=== PATIENT | male | born 1960 | race Caucasian/White ===

== ENCOUNTER 2016-08-17 09:25 | Day surgery (SDC) | payer MEDICAID ==
[2016-08-17] MEDS ORDERED: Lactated Ringers 1,000 ML IV SCH (10:00)
[2016-08-17] MEDS ORDERED: fentaNYL 100 MCG/2 ML SDV ONE (11:09)
[2016-08-17] MEDS ORDERED: Bupivacaine 0.5% 50 ML MDV ONE (11:09)
[2016-08-17] MEDS ORDERED: Midazolam 1 MG/ML 2 ML SDV ONE (11:09)
[2016-08-17] MEDS ORDERED: Propofol 200 MG/20 ML SDV ONE (11:09)
[2016-08-17] MEDS ORDERED: Lidocaine 0.5% 50 ML SDV ONE (12:02)
[2016-08-17 13:49] VITALS: BP 142/78
--- NOTE | 2016-08-17 14:33 | OR ---
DATE OF PROCEDURE: 08/17/2016 PREOPERATIVE DIAGNOSIS: Left nondominant volar wrist ganglion cyst. POSTOPERATIVE DIAGNOSIS: Left nondominant volar wrist ganglion cyst. PROCEDURE: Left nondominant volar wrist ganglion cystectomy. ANESTHESIA: Left Rew block. INDICATION: This 56-year-old white male has a mass on the volar aspect of his left wrist which is tender and bothers him. He is here to have it excised. It is consistent with a volar ganglion cyst. It is on the radial side. He has a normal Isiah's test. I counseled him for excision of the cyst including risks and alternatives, and he gave his informed consent to proceed. DESCRIPTION OF PROCEDURE: After adequate left upper extremity Rew block anesthesia was obtained, the left upper extremity was prepped and draped in the usual sterile fashion. A marking pen was used to wily the planned incision, which was a curvilinear incision over the cyst. Time-out was held. The incision was then made. This was carried deep bluntly and sharply to the cyst. The cyst was excised, it was dissected off the radial artery and was sent to pathology. All looked well. The skin was closed with a running stitch of 5-0 Prolene with an occasional vertical mattress stitch placed to achieve good wound edge approximation. A bulky hand dressing was applied. The tourniquet was cycled down, and he was taken from the operating room in good condition, having tolerated the procedure well. Rober Garcia MD /[id number] JUAQUIN
== END 2016-08-17 14:02 | disposition home or self-care (01) ==
LOC: JP.SDS 09:25
PROVIDERS: ATTEND Surgery
DX: M67.432 Ganglion, left wrist (principal); E11.9 Type 2 diabetes mellitus without complications; F43.10 Post-traumatic stress disorder, unspecified; F41.9 Anxiety disorder, unspecified; G43.A0 Cyclical vomiting, in migraine, not intractable; K21.9 Gastro-esophageal reflux disease without esophagitis; K42.9 Umbilical hernia without obstruction or gangrene; F32.9 Major depressive disorder, single episode, unspecified; Z87.891 Personal history of nicotine dependence; Z79.84 Long term (current) use of oral hypoglycemic drugs; Z79.899 Other long term (current) drug therapy; Z88.0 Allergy status to penicillin; Z88.8 Allergy status to other drugs, medicaments and biological substances; Z91.018 Allergy to other foods
CPT/HCPCS: 25111; J2250; J2704; J3010; J7120; 88305

== ENCOUNTER 2017-02-08 00:45 | Emergency (ER) | payer MEDICAID ==
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
[2017-02-08 03:31] VITALS: BP 140/87
== END 2017-02-08 04:00 ==
LOC: JP.ED 00:45
DX: R45.851 Suicidal ideations (principal); I10 Essential (primary) hypertension; E11.9 Type 2 diabetes mellitus without complications; H54.7 Unspecified visual loss; E78.00 Pure hypercholesterolemia, unspecified; J45.909 Unspecified asthma, uncomplicated; M19.90 Unspecified osteoarthritis, unspecified site; G43.909 Migraine, unspecified, not intractable, without status migrainosus; E66.9 Obesity, unspecified; L40.9 Psoriasis, unspecified; F32.9 Major depressive disorder, single episode, unspecified; Z90.49 Acquired absence of other specified parts of digestive tract; Z91.5 Personal history of self-harm; Z88.0 Allergy status to penicillin; Z91.040 Latex allergy status; Z88.8 Allergy status to other drugs, medicaments and biological substances; Z91.018 Allergy to other foods; Z79.899 Other long term (current) drug therapy; Z68.41 Body mass index [BMI] 40.0-44.9, adult
CPT/HCPCS: 36415; 80053; 80305; 85025; 99285; G0480

== ENCOUNTER 2018-02-21 06:43 | Day surgery (SDC) | payer MEDICAID, MEDICARE ==
[2018-02-21] MEDS ORDERED: ceFAZolin 2 GM in Premix Bag 1 BAG IV ONE (07:30)
[2018-02-21] MEDS: Lactated Ringers 1,000 ML IV SCH (07:42)
[2018-02-21] MEDS: Albuterol/Ipratropium 3.0-0.5 MG/3 ML Neb Soln NEB ONE (07:42)
[2018-02-21] MEDS ORDERED: fentaNYL 250 MCG/5 ML SDV ONE ×2 (08:19→09:08)
[2018-02-21] MEDS ORDERED: Dexamethasone 4 MG/ML SDV ONE (08:19)
[2018-02-21] MEDS ORDERED: Rocuronium 50 MG/5 ML Vial ONE (08:19)
[2018-02-21] MEDS ORDERED: Ondansetron 4 MG/2 ML SDV ONE (08:19)
[2018-02-21] MEDS ORDERED: Propofol 200 MG/20 ML SDV ONE (08:19)
[2018-02-21] MEDS ORDERED: Glycopyrrolate 0.2 MG/ML 5 ML MDV ONE (08:19)
[2018-02-21] MEDS ORDERED: Neostigmine Methylsulfate 1 MG/ML 5 ML Syringe ONE (08:19)
[2018-02-21] MEDS: Clindamycin Phosphate 900 MG in Sodium Chloride 0.9% 100 ML IV ONE (08:39)
[2018-02-21] MEDS: Lidocaine 1% with EPINEPHrine 1:100,000 50 ML MDV ONE (09:14)
[2018-02-21] MEDS: Bupivacaine 0.5% 50 ML MDV ONE (09:14)
[2018-02-21 10:35] VITALS: BP 149/79
--- NOTE | 2018-02-21 13:05 | OR ---
DATE OF PROCEDURE: 02/21/2018 PREOP DIAGNOSIS: Small periumbilical incisional hernia. POSTOP DIAGNOSIS: Small periumbilical incisional hernia. PROCEDURE: Suture closure with #1 Prolene of small incisional hernia adjacent to umbilicus. ANESTHESIA: General endotracheal. SURGEON: Rober Garcia MD INDICATION: This 57-year-old white male has had multiple prior operations including multiple hernia repairs with mesh. He now has a small one adjacent to his umbilicus. He is here to have it repaired. I counseled him for repair of this probably with mesh, and he gave his informed consent to proceed. DESCRIPTION OF PROCEDURE: After adequate general endotracheal anesthesia was obtained, the patient's abdomen was prepped and draped in the usual sterile fashion. Time-out was held. An incision over the hernia defect was made. The underlying preperitoneal fat was dissected free and removed to reveal the hernia defect. This was quite small and it allowed DeBakey to pass through down into the abdomen. We elevated the fascial edges and did confirm there were no adhesions to the anterior abdominal wall at this point, and then closed the small defect with a [id number] stitch of #1 Prolene. Lidocaine 1% with epinephrine and a 50:50 mix with 0.5% Marcaine was infiltrated about the incision. The subcutaneous tissue was closed with an interrupted 3-0 Vicryl suture, 4-0 Vicryl using a subcuticular stitch was placed to approximate the skin. Dermabond was applied. The anesthesia was reversed. He was extubated and brought to recovery room in good condition. Rober Garcia MD /[id number]
== END 2018-02-21 10:45 | disposition home or self-care (01) ==
LOC: JP.SDS 06:43
PROVIDERS: ATTEND Surgery
DX: K43.2 Incisional hernia without obstruction or gangrene (principal); E11.9 Type 2 diabetes mellitus without complications; Z79.84 Long term (current) use of oral hypoglycemic drugs; J45.20 Mild intermittent asthma, uncomplicated; E66.9 Obesity, unspecified; Z68.38 Body mass index [BMI] 38.0-38.9, adult; F17.210 Nicotine dependence, cigarettes, uncomplicated; Z79.899 Other long term (current) drug therapy; Z88.0 Allergy status to penicillin; Z88.6 Allergy status to analgesic agent; Z88.8 Allergy status to other drugs, medicaments and biological substances; Z91.040 Latex allergy status; Z88.5 Allergy status to narcotic agent; Z91.018 Allergy to other foods
CPT/HCPCS: 94640; J1100; J2405; J2704; J2710; J3010; J3490; J7030; J7120; J7620-GY

== ENCOUNTER 2018-11-14 16:13 | Emergency (ER) | payer MEDICARE ==
[2018-11-14 16:30] VITALS: BP 154/104
[2018-11-14] MEDS ORDERED: Sodium Chloride 0.9% 1,000 ML IV SCH ×2 (16:30→17:30)
--- NOTE | 2018-11-14 16:31 | EDM.PDOC ---
<Robyn Pizarro - Last Filed: 11/14/18 18:29> ED HPI GENERAL MEDICAL PROBLEM - General Chief Complaint: Syncope Stated Complaint: DIZZY, WEEK, PAIN IN RIGHT ARM, SOB Time Seen by Provider: 11/14/18 16:28 Source of Information: Reports: Patient History Limitations: Reports: No Limitations - History of Present Illness INITIAL COMMENTS - FREE TEXT/NARRATIVE: pt has been dizzy all day. When he got to the clinic he was in a room and he passed out. It took several people to get him in position to be transported. He had some med changes in the last 2-3 days. His metformin was decreased and his minipress was decreased. Onset: Today Duration: Hour(s): Location: Reports: Generalized Associated Symptoms: Reports: Syncope - Related Data Allergies Allergy/AdvReac Type Severity Reaction Status Date / Time nut - unspecified Allergy Severe Anaphylactic Verified 11/14/18 16:41 Shock penicillin Allergy Severe Airway Verified 11/14/18 16:41 Tightness latex Allergy Rash Verified 11/14/18 16:41 amitriptyline AdvReac Vomiting Verified 11/14/18 16:41 ibuprofen AdvReac Bleeding Verified 11/14/18 16:41 oxycodone HCl [From Percocet] AdvReac Nausea Verified 11/14/18 16:41 tomato AdvReac Vomiting Verified 11/14/18 16:41 Home Meds: Home Meds Omeprazole 40 mg PO DAILY 12/27/14 [History] Acetaminophen [Arthritis Pain Relief] 650 mg PO ASDIRECTED 04/08/15 [History] Albuterol [Proventil HFA] 2 puff INH Q4H PRN 01/23/16 [History] Cetirizine HCl [Zyrtec] 10 mg PO DAILY 01/23/16 [History] Docusate Sodium 200 mg PO BID 01/23/16 [History] Gabapentin [Neurontin] 400 mg PO BID 01/23/16 [History] Prazosin [Minpress] 10 mg PO BEDTIME 01/23/16 [History] Venlafaxine [Effexor XR] 150 mg PO DAILY 01/23/16 [History] atorvaSTATin [Lipitor] 20 mg PO BEDTIME 01/23/16 [History] metFORMIN [Glucophage] 500 mg PO DAILY 07/09/16 [History] Gabapentin [Neurontin] 800 mg PO BEDTIME 02/08/17 [History] Albuterol [Ventolin HFA] 2 inhalation IH Q4HR PRN 02/19/18 [History] Melatonin 6 mg PO BEDTIME 02/19/18 [History] Triamcinolone Acetonide [Triamcinolone Acetonide 0.1% Crm] 1 applic .XX TID [History] Cephalexin [Keflex] 500 mg PO QID 11/14/18 [History] Meclizine [Antivert] 25 mg PO Q6H PRN #30 tab 11/14/18 [Rx] Past Medical History - Past Health History Medical/Surgical History: Denies Medical/Surgical History HEENT History: Reports: Cataract, Impaired Vision Other HEENT History: wears glasses Cardiovascular History: Reports: Blood Clots/VTE/DVT, High Cholesterol, Hypertension, SOB on Exertion, Syncope Respiratory History: Reports: Asthma, SOB Gastrointestinal History: Reports: Bowel Obstruction, Chronic Constipation, Colon Polyp, Gastritis, GERD, GI Bleed Genitourinary History: Reports: Diabetic Nephropathy Musculoskeletal History: Reports: Arthritis, Fracture, Fibromyalgia Other Musculoskeletal History: toe right carpel tunnel syndrome Neurological History: Reports: Concussion, Migraines, Neuropathy, Diabetic, Neuropathy, Peripheral, Seizure Other Neuro History: LAST SEIZURE MORE THAN 10 YEARS Psychiatric History: Reports: Anxiety, Depression, Psych Hospitalization(s), PTSD, Suicide Attempt, Suicidal Ideation Other Psychiatric History: borderline clinging disorder Endocrine/Metabolic History: Reports: Diabetes, Type II, Hyperparathyroidism, Obesity/BMI 30+ Oncologic (Cancer) History: Reports: Basal Cell Carcinoma Dermatologic History: Reports: Psoriasis, Urticaria - Infectious Disease History Infectious Disease History: Reports: Chicken Pox, Measles, Mumps - Past Surgical History HEENT Surgical History: Reports: Tonsillectomy Cardiovascular Surgical History: Reports: None Respiratory Surgical History: Reports: None GI Surgical History: Reports: Appendectomy, Cholecystectomy, Colon, Colonoscopy , EGD, Hernia, Abdominal, Hernia Repair/Other, Lysis of Adhesions, Small Bowel Male Surgical History: Reports: None Endocrine Surgical History: Reports: Parathyroidectomy Neurological Surgical History: Reports: None Musculoskeletal Surgical History: Reports: Arthroscopic Knee Oncologic Surgical History: Reports: Other (See Below) Other Oncologic Surgeries/Procedures: BIOPSY Dermatological Surgical History: Reports: Skin Biopsy Social & Family History - Family History Family Medical History: Noncontributory HEENT: Reports: Sinusitis Cardiac: Reports: Aneurysm, Blood Clots/VTE/DVT, HI, SOB on Exertion Respiratory: Reports: COPD OBGYN: Reports: Other (See Below) Other OBGYN Family History: hysterectomies Musculoskeletal: Reports: Arthritis, Back pain, Chronic Neurological: Reports: CVA, MS Psychiatric: Reports: Psych Hospitalization(s), Psychosis Endocrine/Metabolic: Reports: Diabetes, Type I, Hypothyroidism Dermatologic: Reports: Psoriasis Oncologic: Reports: Breast, Other (See Below) Other Oncologic Family History: stomach - Tobacco Use Smoking Status *Q: Current Every Day Smoker Years of Tobacco use: 40 Packs/Tins Daily: 1.5 - Caffeine Use Caffeine Use: Reports: Coffee, Soda - Recreational Drug Use Recreational Drug Use: Yes Recreational Drug Type: Reports: Marijuana/Hashish Recreational Drug Use Frequency: Socially ED ROS GENERAL - Review of Systems Review Of Systems: See Below Constitutional: Reports: Weakness HEENT: Reports: No Symptoms Respiratory: Reports: No Symptoms Cardiovascular: Reports: Other (pt is having some rt shoulder pain. ) Endocrine: Reports: No Symptoms GI/Abdominal: Reports: No Symptoms : Reports: No Symptoms Musculoskeletal: Reports: No Symptoms Skin: Reports: No Symptoms Neurological: Reports: Dizziness, Difficulty Walking, Weakness Psychiatric: Reports: Anxiety ED EXAM, GENERAL - Physical Exam Exam: See Below Free Text/Narrative:: pt arrived transfered from the clinic stating that he feels like his whole room is spinning He is having difficulty opening his eyes. He does appear to have some nystagmuas. Exam Limited By: No Limitations General Appearance: Alert, Anxious, Moderate Distress, Other (pupils equal and reactive. probasble nystagmus. ) Ears: Normal TMs Nose: Normal Inspection Throat/Mouth: Normal Inspection Head: Atraumatic Neck: Normal Inspection Respiratory/Chest: No Respiratory Distress Cardiovascular: Regular Rate, Rhythm GI/Abdominal: Soft, Non-Tender (Male) Exam: Deferred Rectal (Males) Exam: Deferred Back Exam: Normal Inspection Extremities: Normal Inspection Neurological: Alert, Oriented, Other (pt seemes to not respond normally at times. ) Psychiatric: Anxious Course - Vital Signs Last Recorded V/S: Last Vital Signs Temp 36.1 C 11/14/18 16:20 Pulse 66 11/14/18 16:20 Resp 11 L 11/14/18 16:20 BP 154/104 H 11/14/18 16:20 Pulse Ox 98 11/14/18 16:20 Orthostatic Blood Pressure [ 131/86 Standing] Orthostatic Blood Pressure [ 129/76 Supine] Orthostatic Blood Pressure [ 139/89 Sitting] - Orders/Labs/Meds Orders: Active Orders 24 hr Category Date Time Status EKG Documentation Completion [RC] ASDIRECTED Care 11/14/18 16:26 Active Orthostatic Vital Signs [RC] ASDIRECTED Care 11/14/18 16:33 Active Shoulder Comp Rt [CR] Stat Exams 11/14/18 18:14 Taken Sodium Chloride 0.9% [Normal Saline] 1,000 ml Med 11/14/18 16:30 Active IV ASDIRECTED Sodium Chloride 0.9% [Normal Saline] 1,000 ml Med 11/14/18 17:30 Active IV ASDIRECTED EKG 12 Lead [EK] Routine Ther 11/14/18 16:26 Ordered Medication Orders Sodium Chloride (Normal Saline) 1,000 mls @ 999 mls/hr IV ASDIRECTED ROBYN Last Admin: 11/14/18 17:01 Dose: 999 mls/hr Sodium Chloride (Normal Saline) 1,000 mls @ 999 mls/hr IV ASDIRECTED ROBYN Last Admin: 11/14/18 18:38 Dose: 999 mls/hr Labs: Laboratory Tests 11/14/18 11/14/18 11/14/18 Range/Units 16:20 16:20 16:52 WBC 8.5 (4.5-11.0) K/uL RBC 5.49 (4.30-5.90) M/uL Hgb 17.6 H (12.0-15.0) g/dL Hct 50.8 (40.0-54.0) % MCV 93 (80-98) fL MCH 32 H (27-31) pg MCHC 35 (32-36) % Plt Count 223 (150-400) K/uL Neut % (Auto) 64 (36-66) % Lymph % (Auto) 24 (24-44) % [place] % (Auto) 9 H (2-6) % Eos % (Auto) 2 (2-4) % Baso % (Auto) 1 (0-1) % Sodium 140 (140-148) mmol/L Potassium 4.8 (3.6-5.2) mmol/L Chloride 105 (100-108) mmol/L Carbon Dioxide 26 (21-32) mmol/L Anion Gap 9.3 (5.0-14.0) mmol/L BUN 13 (7-18) mg/dL Creatinine 1.0 (0.8-1.3) mg/dL Est Cr Clr Drug Dosing 97.41 mL/min Estimated GFR (MDRD) > 60 (>60) Glucose 86 (74-106) mg/dL Calcium 9.9 (8.5-10.1) mg/dL Total Bilirubin 0.5 D (0.2-1.0) mg/dL AST 28 (15-37) U/L ALT 61 (12-78) U/L Alkaline Phosphatase 85 (46-116) U/L Troponin I < 0.017 (0.000-0.056) ng/mL Total Protein 6.8 (6.4-8.2) g/dL Albumin 3.9 (3.4-5.0) g/dL Globulin 2.9 (2.3-3.5) g/dL Albumin/Globulin Ratio 1.3 (1.2-2.2) Urine Color Urine Appearance Urine pH (4.5-8.0) Ur Specific [place] (1.008-1.030) Urine Protein (NEGATIVE) mg/dL Urine Glucose (UA) (NEGATIVE) mg/dL Urine Ketones (NEGATIVE) mg/dL Urine Occult Blood (NEGATIVE) Urine Nitrite (NEGAITVE) Urine Bilirubin (NEGATIVE) Urine Urobilinogen (NORMAL) mg/dL Ur Leukocyte Esterase (NEGATIVE) Urine RBC (0-5) Urine WBC (0-5) Ur Epithelial Cells Amorphous Sediment Urine Bacteria Urine Mucus Urine Opiates Screen (NEGATIVE) Ur Oxycodone Screen (NEGATIVE) Urine Methadone Screen (NEGATIVE) Ur Propoxyphene Screen (NEGATIVE) Ur Barbiturates Screen (NEGATIVE) Ur Tricyclics Screen (NEGATIVE) Ur Phencyclidine Scrn (NEGATIVE) Ur Amphetamine Screen (NEGATIVE) U Methamphetamines Scrn (NEGATIVE) Urine MDMA Screen (NEGATIVE) U Benzodiazepines Scrn (NEGATIVE) U Cocaine Metab Screen (NEGATIVE) U Marijuana (THC) Screen (NEGATIVE) Ethyl Alcohol mg/dL 11/14/18 11/14/18 11/14/18 Range/Units 18:01 18:01 18:33 WBC (4.5-11.0) K/uL RBC (4.30-5.90) M/uL Hgb (12.0-15.0) g/dL Hct (40.0-54.0) % MCV (80-98) fL MCH (27-31) pg MCHC (32-36) % Plt Count (150-400) K/uL Neut % (Auto) (36-66) % Lymph % (Auto) (24-44) % [place] % (Auto) (2-6) % Eos % (Auto) (2-4) % Baso % (Auto) (0-1) % Sodium (140-148) mmol/L Potassium (3.6-5.2) mmol/L Chloride (100-108) mmol/L Carbon Dioxide (21-32) mmol/L Anion Gap (5.0-14.0) mmol/L BUN (7-18) mg/dL Creatinine (0.8-1.3) mg/dL Est Cr Clr Drug Dosing mL/min Estimated GFR (MDRD) (>60) Glucose (74-106) mg/dL Calcium (8.5-10.1) mg/dL Total Bilirubin (0.2-1.0) mg/dL AST (15-37) U/L ALT (12-78) U/L Alkaline Phosphatase (46-116) U/L Troponin I (0.000-0.056) ng/mL Total Protein (6.4-8.2) g/dL Albumin (3.4-5.0) g/dL Globulin (2.3-3.5) g/dL Albumin/Globulin Ratio (1.2-2.2) Urine Color Yellow Urine Appearance Clear Urine pH 6.0 (4.5-8.0) Ur Specific [place] 1.010 (1.008-1.030) Urine Protein Negative (NEGATIVE) mg/dL Urine Glucose (UA) Normal (NEGATIVE) mg/dL Urine Ketones Negative (NEGATIVE) mg/dL Urine Occult Blood Negative (NEGATIVE) Urine Nitrite Negative (NEGAITVE) Urine Bilirubin Negative (NEGATIVE) Urine Urobilinogen Normal (NORMAL) mg/dL Ur Leukocyte Esterase Negative (NEGATIVE) Urine RBC Not seen (0-5) Urine WBC Not seen (0-5) Ur Epithelial Cells Not seen Amorphous Sediment Rare Urine Bacteria Rare Urine Mucus Not seen Urine Opiates Screen Negative (NEGATIVE) Ur Oxycodone Screen Presumptive positive H (NEGATIVE) Urine Methadone Screen Negative (NEGATIVE) Ur Propoxyphene Screen Negative (NEGATIVE) Ur Barbiturates Screen Negative (NEGATIVE) Ur Tricyclics Screen Negative (NEGATIVE) Ur Phencyclidine Scrn Negative (NEGATIVE) Ur Amphetamine Screen Negative (NEGATIVE) U Methamphetamines Scrn Negative (NEGATIVE) Urine MDMA Screen Negative (NEGATIVE) U Benzodiazepines Scrn Negative (NEGATIVE) U Cocaine Metab Screen Negative (NEGATIVE) U Marijuana (THC) Screen Presumptive positive H (NEGATIVE) Ethyl Alcohol < 3 mg/dL Meds: Medications Generic Name Dose Route Start Last Admin Trade Name Freq PRN Reason Stop Dose Admin Sodium Chloride 1,000 mls @ 999 mls/hr 11/14/18 16:30 11/14/18 17:01 Normal Saline IV 999 mls/hr ASDIRECTED ROBYN Administration Sodium Chloride 1,000 mls @ 999 mls/hr 11/14/18 17:30 11/14/18 18:38 Normal Saline IV 999 mls/hr ASDIRECTED ROBYN Administration Discontinued Medications Generic Name Dose Route Start Last Admin Trade Name Freq PRN Reason Stop Dose Admin Meclizine HCl 25 mg 11/14/18 17:25 11/14/18 18:37 Antivert PO 11/14/18 17:26 25 mg ONETIME ONE Administration Ondansetron HCl 4 mg 11/14/18 16:43 11/14/18 17:00 Zofran IVPUSH 11/14/18 16:44 4 mg ONETIME ONE Administration - Re-Assessments/Exams Free Text/Narrative Re-Assessment/Exam: 11/14/18 17:41 pt has had normal labs except for dehydration. 11/14/18 18:29 on cat 11/14/18 18:31 pt had a cat scan of the head which did show a possible maxillary sinuitis. He did not show other abnormalities, His symptoms seem to lean towards a inner ear disturbance, He has been given antivert and zoforan. He is nmore awake at this time. Departure - Departure Disposition: Home, Self-Care 01 Clinical Impression: Vertigo, Marijuana use Shoulder pain, right Qualifiers: Chronicity: unspecified Qualified Code(s): M25.511 - Pain in right shoulder Prescriptions: Meclizine [Antivert] 25 mg PO Q6H PRN #30 tab PRN Reason: Dizziness Instructions: Vertigo, [id number] Referrals: Samuel Bueno MD [Primary Care Provider] - Forms: ED Department Discharge Additional Instructions: Use meclizine every 6-8 hrs as needed for vertigo. Take acetaminophen up to 1000 mg every 6 hrs as needed for shoulder pain. See you provider regarding either a cortisone injection or PT referral for the shoulder pain. Return as needed. <Kentrell Leavitt - Last Filed: 11/14/18 19:16> Course - Vital Signs Text/Narrative:: Feeling much better after meclizine. Departure - Departure Time of Disposition: 19:40 Condition: Fair
[2018-11-14] MEDS ORDERED: Ondansetron 4 MG/2 ML SDV IVPUSH ONE (16:43)
[2018-11-14] MEDS ORDERED: Meclizine 25 MG Tab PO ONE (17:25)
--- NOTE | 2018-11-14 17:51 | CRLCT ---
Indication: Intermittent unresponsiveness. Technique: CT of the head without contrast. Bone and soft tissue algorithms. Comparison: No prior studies available for comparison at this institution. Findings: No acute intracranial hemorrhage or extra-axial collection. No evidence of acute cortical infarction. No mass effect or midline shift. Normal cerebral volume. The ventricles are normal in size, shape and contour. There is normal christians[place] and white matter differentiation. Carotid siphon atherosclerosis. The orbital contents are normal. Small air-fluid level in the right maxillary sinus. Please correlate for acute sinus infection. Mastoid air cells are clear. No calvarial fractures. No lytic or sclerotic osseous lesions within the calvarium or skull base. Scalp and other imaged soft tissue structures are normal. Incidental prominent arachnoid granulation in the right occipital bone. Impression: 1. No acute intracranial abnormality. 2. Small air-fluid level in the right maxillary sinus. Please correlate for acute sinus infection. Please note that all CT scans at this facility use dose modulation, iterative reconstruction, and/or weight-based dosing when appropriate to reduce radiation dose to as low as reasonably achievable. Dictated by Samuel Ayala MD @ Nov 14 2018 5:47PM Signed by Dr. Samuel Ayala @ Nov 14 2018 5:50PM
--- NOTE | 2018-11-14 19:24 | CRLCR ---
Indication: Right shoulder pain Technique: Right shoulder 4 views. Comparison: None Findings: Bones: Alignment is normal. No fractures or bone lesions. Joint spaces: Unremarkable. Soft tissues: Unremarkable. Impression: Unremarkable right shoulder series. Dictated by Mychal Robertson MD @ Nov 14 2018 7:18PM Signed by Dr. Mychal Robertson @ Nov 14 2018 7:24PM
== END 2018-11-14 19:37 | disposition home or self-care (01) ==
LOC: JP.ED 16:13
DX: R42 Dizziness and giddiness (principal); M25.511 Pain in right shoulder; F12.90 Cannabis use, unspecified, uncomplicated; I10 Essential (primary) hypertension; E66.9 Obesity, unspecified; E11.21 Type 2 diabetes mellitus with diabetic nephropathy; M19.90 Unspecified osteoarthritis, unspecified site; E11.40 Type 2 diabetes mellitus with diabetic neuropathy, unspecified; K21.9 Gastro-esophageal reflux disease without esophagitis; F32.9 Major depressive disorder, single episode, unspecified; F41.9 Anxiety disorder, unspecified; Z88.0 Allergy status to penicillin; Z79.84 Long term (current) use of oral hypoglycemic drugs; Z91.040 Latex allergy status; Z88.6 Allergy status to analgesic agent; Z91.018 Allergy to other foods; Z79.899 Other long term (current) drug therapy; Z98.890 Other specified postprocedural states; Z90.49 Acquired absence of other specified parts of digestive tract; F17.210 Nicotine dependence, cigarettes, uncomplicated
CPT/HCPCS: 36415; 70450; 73030; 80053; 80305; 81001; 82962; 84484; 85025; 93005; 96361; 96374; 99284; A9270; G0480; J2405; J7030; 93010

== ENCOUNTER 2018-12-01 12:57 | Emergency (ER) | payer MEDICARE, MEDICAID ==
[2018-12-01] MEDS ORDERED: Ondansetron 4 MG/2 ML SDV IVPUSH ONE (13:27)
[2018-12-01] MEDS ORDERED: Sodium Chloride 0.9% 10 ML Syringe FLUSH PRN (13:27)
[2018-12-01] MEDS ORDERED: Sodium Chloride 0.9% 1,000 ML IV SCH (13:30)
--- NOTE | 2018-12-01 13:32 | EDM.PDOC ---
ED HPI GENERAL MEDICAL PROBLEM - General Chief Complaint: Neurological Problem Stated Complaint: BLOOD CLOT WITH MEMORY LOSS, DIZZY, HEADACHES Time Seen by Provider: 12/01/18 13:17 Source of Information: Reports: Patient, Family, Old Records, RN Notes Reviewed History Limitations: Reports: No Limitations - History of Present Illness INITIAL COMMENTS - FREE TEXT/NARRATIVE: 58-year-old gentleman presents emergency department today with complaint of increasing headache, he does have a known history of a venous sinus thrombus recently diagnosed on 18 November. With that he has had seizures was admitted the hospital started on anticoagulants as well as seizure medications and Lovenox Coumadin and Keppra. He states over the last 24 hours he's had an increase in pain with this headache also noticed difficulties with memory. He states his seizure activity has improved however he still having one seizure per day last less than a minute but there is a period of post ictal following these usually happens midmorning. Also complains of nausea denies any shortness of breath chest pain no or GI symptomology no focal neurologic deficit Headache Pain Score (Numeric/FACES): 10 - Related Data Allergies Allergy/AdvReac Type Severity Reaction Status Date / Time nut - unspecified Allergy Severe Anaphylactic Verified 12/01/18 13:17 Shock penicillin Allergy Severe Airway Verified 12/01/18 13:17 Tightness latex Allergy Rash Verified 12/01/18 13:17 amitriptyline AdvReac Vomiting Verified 12/01/18 13:17 ibuprofen AdvReac Bleeding Verified 12/01/18 13:17 oxycodone HCl [From Percocet] AdvReac Nausea Verified 12/01/18 13:17 tomato AdvReac Vomiting Verified 12/01/18 13:17 Home Meds: Home Meds Omeprazole 40 mg PO DAILY 12/27/14 [History] Acetaminophen [Arthritis Pain Relief] 650 mg PO ASDIRECTED 04/08/15 [History] Albuterol [Proventil HFA] 2 puff INH Q4H PRN 01/23/16 [History] Cetirizine HCl [Zyrtec] 10 mg PO DAILY 01/23/16 [History] Docusate Sodium 200 mg PO BID 01/23/16 [History] Gabapentin [Neurontin] 400 mg PO BID 01/23/16 [History] Prazosin [Minpress] 10 mg PO BEDTIME 01/23/16 [History] atorvaSTATin [Lipitor] 20 mg PO BEDTIME 01/23/16 [History] metFORMIN [Glucophage] 500 mg PO DAILY 07/09/16 [History] Gabapentin [Neurontin] 800 mg PO BEDTIME 02/08/17 [History] Albuterol [Ventolin HFA] 2 inhalation IH Q4HR PRN 02/19/18 [History] Melatonin 6 mg PO BEDTIME 02/19/18 [History] Triamcinolone Acetonide [Triamcinolone Acetonide 0.1% Crm] 1 applic .XX TID [History] Meclizine [Antivert] 25 mg PO Q6H PRN #30 tab 11/14/18 [Rx] Enoxaparin [Lovenox] 141 mg SQ BID 12/01/18 [History] Warfarin [Coumadin] 7.5 mg PO DAILY 12/01/18 [History] Past Medical History HEENT History: Reports: Cataract, Impaired Vision Other HEENT History: wears glasses Cardiovascular History: Reports: Blood Clots/VTE/DVT (Dural venous sinus thrombosis), High Cholesterol, Hypertension, SOB on Exertion, Syncope Respiratory History: Reports: Asthma, SOB Gastrointestinal History: Reports: Bowel Obstruction, Chronic Constipation, Colon Polyp, Gastritis, GERD, GI Bleed Genitourinary History: Reports: Diabetic Nephropathy Musculoskeletal History: Reports: Arthritis, Fracture, Fibromyalgia Other Musculoskeletal History: toe right carpel tunnel syndrome Neurological History: Reports: Concussion, Migraines, Neuropathy, Diabetic, Neuropathy, Peripheral, Seizure, Other (See Below) Other Neuro History: blood clot in brain r side small seizures recently Psychiatric History: Reports: Anxiety, Depression, Psych Hospitalization(s), PTSD, Suicide Attempt, Suicidal Ideation Other Psychiatric History: borderline clinging disorder Endocrine/Metabolic History: Reports: Diabetes, Type II, Hyperparathyroidism, Obesity/BMI 30+ Oncologic (Cancer) History: Reports: Basal Cell Carcinoma Dermatologic History: Reports: Psoriasis, Urticaria - Infectious Disease History Infectious Disease History: Reports: Chicken Pox - Past Surgical History HEENT Surgical History: Reports: Tonsillectomy Cardiovascular Surgical History: Reports: None Respiratory Surgical History: Reports: None GI Surgical History: Reports: Appendectomy, Cholecystectomy, Colon, Colonoscopy , EGD, Hernia, Abdominal, Hernia Repair/Other, Lysis of Adhesions, Small Bowel Male Surgical History: Reports: None Endocrine Surgical History: Reports: Parathyroidectomy Neurological Surgical History: Reports: None Musculoskeletal Surgical History: Reports: Arthroscopic Knee Oncologic Surgical History: Reports: Other (See Below) Other Oncologic Surgeries/Procedures: BIOPSY Dermatological Surgical History: Reports: Skin Biopsy Social & Family History - Family History Family Medical History: Noncontributory HEENT: Reports: Sinusitis Cardiac: Reports: Aneurysm, Blood Clots/VTE/DVT, IA, SOB on Exertion Respiratory: Reports: COPD OBGYN: Reports: Other (See Below) Other OBGYN Family History: hysterectomies Musculoskeletal: Reports: Arthritis, Back pain, Chronic Neurological: Reports: CVA, MS Psychiatric: Reports: Psych Hospitalization(s), Psychosis Endocrine/Metabolic: Reports: Diabetes, Type I, Hypothyroidism Dermatologic: Reports: Psoriasis Oncologic: Reports: Breast, Other (See Below) Other Oncologic Family History: stomach - Caffeine Use Caffeine Use: Reports: Coffee, Soda ED ROS GENERAL - Review of Systems Review Of Systems: See Below Constitutional: Reports: No Symptoms HEENT: Reports: No Symptoms Respiratory: Reports: No Symptoms Cardiovascular: Reports: No Symptoms GI/Abdominal: Reports: Nausea : Reports: No Symptoms Musculoskeletal: Reports: No Symptoms Neurological: Reports: Headache, Seizure - Physical Exam Exam: See Below Text/Narrative:: General: Male, ill-appearing but not in distress, alert and oriented x3 HEENT: head is atraumatic normocephalic, eyes pupils equal round reactive to light, sclera clear no conjunctivitis appreciated, extraocular my movements are intact funduscopic exam reveals sharp disc margins no papilledema. Ears tympanic membranes clear and salguero landmarks and light reflex are present bilaterally canals are clear. Nose no septal deviation, nares are clear, no blood present. Mouth mucosa is moist and pink no erythema or exudate noted in soft palate, tongue is midline uvula is midline, dentition is intact. Neck: Supple no thyromegaly no tracheal deviation. Nodes: Cervical nodes subclavicular nodes nontender no palpable lymphadenopathy noted. Lungs: clear to auscultation bilaterally with symmetrical respirations, no adventitious noise appreciated. CV: Regular rate and rhythm S1 and S2 appreciated no murmurs rubs or gallops noted. Abdomen: Soft, obese, nontender, no palpable masses or organomegaly appreciated , no distention no guarding bowel sounds are present, Neuro: GCS 15 Skin: Warm and dry, intact Extremities: No lower extremity edema appreciated, pedal pulse is +2. Course - Vital Signs Last Recorded V/S: Last Vital Signs Temp 94.4 F L 12/01/18 13:46 Pulse 64 12/01/18 13:46 Resp 24 H 12/01/18 13:46 BP 151/88 H 12/01/18 13:46 Pulse Ox 94 L 12/01/18 13:46 - Orders/Labs/Meds Orders: Active Orders 24 hr Category Date Time Status Peripheral IV Care [RC] . DIRECTED Care 12/01/18 13:27 Active Sodium Chloride 0.9% [Normal Saline] 1,000 ml Med 12/01/18 13:30 Active IV ASDIRECTED Sodium Chloride 0.9% [Saline Flush] Med 12/01/18 13:27 Active 10 ml FLUSH ASDIRECTED PRN Peripheral IV Insertion Adult [OM.PC] Urgent Oth 12/01/18 13:27 Ordered Medication Orders Sodium Chloride (Normal Saline) 1,000 mls @ 500 mls/hr IV ASDIRECTED ROBYN Last Admin: 12/01/18 13:56 Dose: 500 mls/hr Sodium Chloride (Saline Flush) 10 ml FLUSH ASDIRECTED PRN PRN Reason: Keep Vein Open Last Admin: 12/01/18 13:44 Dose: 10 ml Labs: Laboratory Tests 12/01/18 12/01/18 12/01/18 Range/Units 13:41 13:41 13:41 WBC 9.2 (4.5-11.0) K/uL RBC 5.32 (4.30-5.90) M/uL Hgb 16.9 H (12.0-15.0) g/dL Hct 48.4 (40.0-54.0) % MCV 91 (80-98) fL MCH 32 H (27-31) pg MCHC 35 (32-36) % Plt Count 152 (150-400) K/uL Neut % (Auto) 75 H (36-66) % Lymph % (Auto) 15 L (24-44) % [place] % (Auto) 8 H (2-6) % Eos % (Auto) 1 L (2-4) % Baso % (Auto) 1 (0-1) % PT 11.4 (9.5-12.0) sec INR 1.06 (0.80-1.20) APTT 36.5 H (27.0-36.0) sec Sodium 138 L (140-148) mmol/L Potassium 4.1 (3.6-5.2) mmol/L Chloride 103 (100-108) mmol/L Carbon Dioxide 26 (21-32) mmol/L Anion Gap 13.1 (5.0-14.0) mmol/L BUN 11 (7-18) mg/dL Creatinine 1.0 (0.8-1.3) mg/dL Est Cr Clr Drug Dosing 97.41 mL/min Estimated GFR (MDRD) > 60 (>60) Glucose 134 H (74-106) mg/dL Lactic Acid (0.4-2.0) mmol/L Calcium 9.6 (8.5-10.1) mg/dL Total Bilirubin 0.4 (0.2-1.0) mg/dL AST 33 (15-37) U/L ALT 99 H (12-78) U/L Alkaline Phosphatase 78 (46-116) U/L Total Protein 7.1 (6.4-8.2) g/dL Albumin 3.9 (3.4-5.0) g/dL Globulin 3.2 (2.3-3.5) g/dL Albumin/Globulin Ratio 1.2 (1.2-2.2) 12/01/18 Range/Units 13:41 WBC (4.5-11.0) K/uL RBC (4.30-5.90) M/uL Hgb (12.0-15.0) g/dL Hct (40.0-54.0) % MCV (80-98) fL MCH (27-31) pg MCHC (32-36) % Plt Count (150-400) K/uL Neut % (Auto) (36-66) % Lymph % (Auto) (24-44) % [place] % (Auto) (2-6) % Eos % (Auto) (2-4) % Baso % (Auto) (0-1) % PT (9.5-12.0) sec INR (0.80-1.20) APTT (27.0-36.0) sec Sodium (140-148) mmol/L Potassium (3.6-5.2) mmol/L Chloride (100-108) mmol/L Carbon Dioxide (21-32) mmol/L Anion Gap (5.0-14.0) mmol/L BUN (7-18) mg/dL Creatinine (0.8-1.3) mg/dL Est Cr Clr Drug Dosing mL/min Estimated GFR (MDRD) (>60) Glucose (74-106) mg/dL Lactic Acid 1.4 (0.4-2.0) mmol/L Calcium (8.5-10.1) mg/dL Total Bilirubin (0.2-1.0) mg/dL AST (15-37) U/L ALT (12-78) U/L Alkaline Phosphatase (46-116) U/L Total Protein (6.4-8.2) g/dL Albumin (3.4-5.0) g/dL Globulin (2.3-3.5) g/dL Albumin/Globulin Ratio (1.2-2.2) Meds: Medications Generic Name Dose Route Start Last Admin Trade Name Freq PRN Reason Stop Dose Admin Sodium Chloride 1,000 mls @ 500 mls/hr 12/01/18 13:30 12/01/18 13:56 Normal Saline IV 500 mls/hr ASDIRECTED ROBYN Administration Sodium Chloride 10 ml 12/01/18 13:27 12/01/18 13:44 Saline Flush FLUSH 10 ml ASDIRECTED PRN Administration Keep Vein Open Discontinued Medications Generic Name Dose Route Start Last Admin Trade Name Freq PRN Reason Stop Dose Admin Fentanyl 50 mcg 12/01/18 14:18 12/01/18 14:33 Sublimaze IVPUSH 12/01/18 14:19 50 mcg ONETIME ONE Administration Ondansetron HCl 4 mg 12/01/18 13:27 12/01/18 13:58 Zofran IVPUSH 12/01/18 13:28 4 mg ONETIME ONE Administration Departure - Departure Time of Disposition: 14:51 Disposition: DC/Tfer to Acute Hospital 02 Condition: Fair Clinical Impression: Cerebral venous sinus thrombosis Headache Qualifiers: Headache type: other vascular headache Qualified Code(s): G44.1 - Vascular headache, not elsewhere classified - Discharge Information Referrals: Samuel Bueno MD [Primary Care Provider] - Forms: ED Department Discharge - My Orders Last 24 Hours: My Active Orders 12/01/18 13:27 Peripheral IV Care [RC] . DIRECTED Sodium Chloride 0.9% [Saline Flush] 10 ml FLUSH ASDIRECTED PRN Peripheral IV Insertion Adult [OM.PC] Urgent 12/01/18 13:30 Sodium Chloride 0.9% [Normal Saline] 1,000 ml IV ASDIRECTED - Assessment/Plan Last 24 Hours: My Active Orders 12/01/18 13:27 Peripheral IV Care [RC] . DIRECTED Sodium Chloride 0.9% [Saline Flush] 10 ml FLUSH ASDIRECTED PRN Peripheral IV Insertion Adult [OM.PC] Urgent 12/01/18 13:30 Sodium Chloride 0.9% [Normal Saline] 1,000 ml IV ASDIRECTED Plan: Assessment Acuity = acute Site and laterality = venous sinus thrombus left side on anticoagulants with increasing headache Etiology = unknown etiology Manifestations = nausea Location of injury = Home Lab values = CBC, CMP within normal limits INR subtherapeutic 1.06 CT scan shows no change from prior CT on 621] Plan Called discussed case with Dr. Sanz emergency room physician at [place] [address] she kindly accepted the patient in transport he will be transported via EMS ground This note was dictated using [employer] voice recognition software please call with any questions on syntax or grammar.
--- NOTE | 2018-12-01 14:04 | CT ---
Head wo Cont CLINICAL HISTORY: Headache , history of CVT COMPARISON: 11/14/2018 TECHNIQUE: Transverse scans were obtained from the base of the skull through the vertex without IV contrast on a multislice, multidetector CT scanner. Auto dosage reduction and iterative reconstruction techniques employed. FINDINGS: No focal abnormal parenchymal density is identified. There is no mass effect, hemorrhage, or extraaxial collection. The basal cisterns and sulci over the convexities are normal. The ventricles are normal for age. There is a cavum septum lucidum. There is some fluid seen in the visualized portion of the right maxillary sinus this is also seen in October. IMPRESSION: No hemorrhage, mass effect or extra-axial collection. No significant change from prior study Fluid in the right maxillary sinus. This may represent sinusitis
[2018-12-01] MEDS ORDERED: fentaNYL 100 MCG/2 ML SDV IVPUSH ONE (14:18)
[2018-12-01 15:28] VITALS: BP 147/85; PULSE 68
== END 2018-12-01 15:30 ==
LOC: JP.ED 12:57
DX: G08 Intracranial and intraspinal phlebitis and thrombophlebitis (principal); E78.00 Pure hypercholesterolemia, unspecified; I10 Essential (primary) hypertension; J45.909 Unspecified asthma, uncomplicated; K21.9 Gastro-esophageal reflux disease without esophagitis; E11.21 Type 2 diabetes mellitus with diabetic nephropathy; E11.42 Type 2 diabetes mellitus with diabetic polyneuropathy; F41.9 Anxiety disorder, unspecified; F32.9 Major depressive disorder, single episode, unspecified; F17.210 Nicotine dependence, cigarettes, uncomplicated; E66.9 Obesity, unspecified; Z68.36 Body mass index [BMI] 36.0-36.9, adult; Z88.0 Allergy status to penicillin; Z91.040 Latex allergy status; Z91.018 Allergy to other foods; Z88.5 Allergy status to narcotic agent; Z88.8 Allergy status to other drugs, medicaments and biological substances; Z88.6 Allergy status to analgesic agent; Z79.899 Other long term (current) drug therapy; Z79.01 Long term (current) use of anticoagulants; Z79.84 Long term (current) use of oral hypoglycemic drugs; Z86.718 Personal history of other venous thrombosis and embolism; Z85.828 Personal history of other malignant neoplasm of skin
CPT/HCPCS: 36415; 70450; 80053; 83605; 85025; 85610; 85730; 96361; 96374; 96375; 99285; J2405; J3010; J7030

== ENCOUNTER 2018-12-06 15:17 | Emergency (ER) | payer MEDICARE, MEDICAID ==
[2018-12-06 15:41] VITALS: BP 151/80; PULSE 69
--- NOTE | 2018-12-06 16:33 | EDM.PDOCBH ---
ED HPI GENERAL MEDICAL PROBLEM - General Chief Complaint: Behavioral/Psych Stated Complaint: SUICIDAL Time Seen by Provider: 12/06/18 15:29 Source of Information: Reports: Patient, Family, Old Records, RN Notes Reviewed History Limitations: Reports: No Limitations - History of Present Illness INITIAL COMMENTS - FREE TEXT/NARRATIVE: 58-year-old gentleman presents emergency department today complaint of suicidal ideation he has a long complicated medical history which does include sinus venous thrombosis complicated with seizure he is also been started on anticoagulation therapy and has had difficulty obtaining therapeutic level on Coumadin. He is a daily cannabis user he also suffers from PTSD does have recurrent thoughts of suicide without plan unfortunately after his recent events with his blood clot the recurrent thoughts of suicide have increased. Law enforcement was called today as he became very agitated with family members and concerned about his mental stability. At this time admits to use recurrent suicidal ideation with recent thoughts however he has no plan I'll firearms have been locked the house and medications are control by other family. He does have an appointment with psychiatry next week - Related Data Allergies Allergy/AdvReac Type Severity Reaction Status Date / Time nut - unspecified Allergy Severe Anaphylactic Verified 12/06/18 15:44 Shock penicillin Allergy Severe Airway Verified 12/06/18 15:44 Tightness latex Allergy Rash Verified 12/06/18 15:44 amitriptyline AdvReac Vomiting Verified 12/06/18 15:44 ibuprofen AdvReac Bleeding Verified 12/06/18 15:44 oxycodone HCl [From Percocet] AdvReac Nausea Verified 12/06/18 15:44 tomato AdvReac Vomiting Verified 12/06/18 15:44 Home Meds: Home Meds Omeprazole 40 mg PO DAILY 12/27/14 [History] Acetaminophen [Arthritis Pain Relief] 650 mg PO ASDIRECTED 04/08/15 [History] Albuterol [Proventil HFA] 2 puff INH Q4H PRN 01/23/16 [History] Cetirizine HCl [Zyrtec] 10 mg PO DAILY 01/23/16 [History] Docusate Sodium 200 mg PO BID 01/23/16 [History] Gabapentin [Neurontin] 400 mg PO BID 01/23/16 [History] atorvaSTATin [Lipitor] 20 mg PO BEDTIME 01/23/16 [History] metFORMIN [Glucophage] 500 mg PO DAILY 07/09/16 [History] Gabapentin [Neurontin] 800 mg PO BEDTIME 02/08/17 [History] Albuterol [Ventolin HFA] 2 inhalation IH Q4HR PRN 02/19/18 [History] Melatonin 6 mg PO BEDTIME 02/19/18 [History] Enoxaparin [Lovenox] 141 mg SQ BID 12/01/18 [History] Warfarin [Coumadin] 7.5 mg PO DAILY 12/01/18 [History] levETIRAcetam [Keppra] 12/06/18 [History] Past Medical History HEENT History: Reports: Cataract, Impaired Vision Other HEENT History: wears glasses Cardiovascular History: Reports: Blood Clots/VTE/DVT, High Cholesterol, Hypertension, SOB on Exertion, Syncope Respiratory History: Reports: Asthma, SOB Gastrointestinal History: Reports: Bowel Obstruction, Chronic Constipation, Colon Polyp, Gastritis, GERD, GI Bleed Genitourinary History: Reports: Diabetic Nephropathy Musculoskeletal History: Reports: Arthritis, Fracture, Fibromyalgia Other Musculoskeletal History: toe right carpel tunnel syndrome Neurological History: Reports: Concussion, Migraines, Neuropathy, Diabetic, Neuropathy, Peripheral, Seizure, Other (See Below) Other Neuro History: blood clot in brain r side small seizures recently Psychiatric History: Reports: Anxiety, Depression, Psych Hospitalization(s), PTSD, Suicide Attempt, Suicidal Ideation Other Psychiatric History: borderline clinging disorder Endocrine/Metabolic History: Reports: Diabetes, Type II, Hyperparathyroidism, Obesity/BMI 30+ Oncologic (Cancer) History: Reports: Basal Cell Carcinoma Dermatologic History: Reports: Psoriasis, Urticaria - Infectious Disease History Infectious Disease History: Reports: Chicken Pox - Past Surgical History HEENT Surgical History: Reports: Tonsillectomy Cardiovascular Surgical History: Reports: None Respiratory Surgical History: Reports: None GI Surgical History: Reports: Appendectomy, Cholecystectomy, Colon, Colonoscopy , EGD, Hernia, Abdominal, Hernia Repair/Other, Lysis of Adhesions, Small Bowel Male Surgical History: Reports: None Endocrine Surgical History: Reports: Parathyroidectomy Neurological Surgical History: Reports: None Musculoskeletal Surgical History: Reports: Arthroscopic Knee Oncologic Surgical History: Reports: Other (See Below) Other Oncologic Surgeries/Procedures: BIOPSY Dermatological Surgical History: Reports: Skin Biopsy Social & Family History - Family History Family Medical History: Noncontributory HEENT: Reports: Sinusitis Cardiac: Reports: Aneurysm, Blood Clots/VTE/DVT, ID, SOB on Exertion Respiratory: Reports: COPD OBGYN: Reports: Other (See Below) Other OBGYN Family History: hysterectomies Musculoskeletal: Reports: Arthritis, Back pain, Chronic Neurological: Reports: CVA, MS Psychiatric: Reports: Psych Hospitalization(s), Psychosis Endocrine/Metabolic: Reports: Diabetes, Type I, Hypothyroidism Dermatologic: Reports: Psoriasis Oncologic: Reports: Breast, Other (See Below) Other Oncologic Family History: stomach - Tobacco Use Smoking Status *Q: Never Smoker - Caffeine Use Caffeine Use: Reports: Coffee, Soda ED ROS GENERAL - Review of Systems Review Of Systems: See Below Constitutional: Reports: No Symptoms Psychiatric: Reports: Suicidal Ideation. Denies: Homicidal Ideation ED EXAM, BEHAVIORAL HEALTH - Physical Exam Exam: See Below Text/Narrative:: Orientated to person place and time, appropriately dressed, well groomed, memory to recent and remote events intact, good attention and concentration, speech is of adequate rate tone and volume, good fund of knowledge, language is appropriate, Mood and affect are euthymic, no pressured thoughts, positive for suicidal ideation, denies homicidal ideation, no hallucinations visual or auditory, poor judgment, good insight Exam Limited By: No Limitations General Appearance: Alert, WD/WN, No Apparent Distress Respiratory/Chest: No Respiratory Distress COURSE, BEHAVIORAL HEALTH COMP - Course Vital Signs: Last Vital Signs Temp 99.1 F 12/06/18 15:53 Pulse 69 12/06/18 15:53 Resp 16 12/06/18 15:53 BP 151/80 H 12/06/18 15:53 Pulse Ox 94 L 12/06/18 15:53 Departure - Departure Time of Disposition: 16:33 Disposition: Home, Self-Care 01 Condition: Fair Clinical Impression: Suicidal ideation - Discharge Information Referrals: PCP,None [Primary Care Provider] - Additional Instructions: Try the Ativan half a tablet to a full tablet as needed for periods of agitation , please keep your follow-up appointment with psychiatry next week, call return to the emergency department worsening of symptoms - Assessment/Plan Plan: Assessment Acuity = acute Site and laterality = suicidal ideation without plan Etiology = probably related to PTSD and recent sinus venous thromboembolism may play a role Manifestations = none Location of injury = Home Lab values = none Plan I did have a discussion with both him and the family the thing that concerns the family is the agitated periods as he has difficulty calming down when he gets upset. We are going to try a trial of Ativan 1 mg by mouth 3 times a day when necessary total number of 10 tablets until he can follow up with psychiatry next week This note was dictated using [employer] voice recognition software please call with any questions on syntax or grammar.
== END 2018-12-06 16:54 | disposition home or self-care (01) ==
LOC: JP.ED 15:17
DX: R45.851 Suicidal ideations (principal); E11.21 Type 2 diabetes mellitus with diabetic nephropathy; Z79.899 Other long term (current) drug therapy; Z79.01 Long term (current) use of anticoagulants; Z91.018 Allergy to other foods; Z88.0 Allergy status to penicillin; Z91.040 Latex allergy status; Z88.6 Allergy status to analgesic agent
CPT/HCPCS: 99284

== ENCOUNTER 2018-12-13 17:19 | Emergency (ER) | payer MEDICARE, MEDICAID ==
[2018-12-13] MEDS ORDERED: LORazepam 1 MG Tab PO ONE (18:16)
--- NOTE | 2018-12-13 18:22 | EDM.PDOCBH ---
ED HPI GENERAL MEDICAL PROBLEM - General Chief Complaint: Behavioral/Psych Stated Complaint: EVAL Time Seen by Provider: 12/13/18 18:00 Source of Information: Reports: Patient - History of Present Illness INITIAL COMMENTS - FREE TEXT/NARRATIVE: 58-year-old with history of depression, PTSD, recent diagnosis of dural venous sinus thrombosis, and prior suicide attempts presents with concerns of suicidal ideation. He reports that symptoms started this afternoon after he got into a verbal altercation with his grandson and granddaughter. This was at his home, he left and walked around town tempted to de-escalate but reports that his anger has turned into thoughts of killing himself. He reports he currently has no plan, but can "come up with one in an instant" and would not return to the emergency department if this were the case. He has firearms at home, reports no access due to being locked up, but does report that he has any "many knives" to hurt himself with. In the past he is attempted to slit his wrists. He denies any attempted self-harm today. No homicidal ideations or thoughts of hurting others. He reports he was recently taken off of his psychiatric meds. He has also lost his support system including his significant other of 39 years and his daughter who formerly lived with him. He denies any medical concerns. - Related Data Allergies Allergy/AdvReac Type Severity Reaction Status Date / Time nut - unspecified Allergy Severe Anaphylactic Verified 12/06/18 15:44 Shock penicillin Allergy Severe Airway Verified 12/06/18 15:44 Tightness latex Allergy Rash Verified 12/06/18 15:44 amitriptyline AdvReac Vomiting Verified 12/06/18 15:44 ibuprofen AdvReac Bleeding Verified 12/06/18 15:44 oxycodone HCl [From Percocet] AdvReac Nausea Verified 12/06/18 15:44 tomato AdvReac Vomiting Verified 12/06/18 15:44 Home Meds: Home Meds Omeprazole 40 mg PO DAILY 12/27/14 [History] Acetaminophen [Arthritis Pain Relief] 650 mg PO ASDIRECTED 04/08/15 [History] Albuterol [Proventil HFA] 2 puff INH Q4H PRN 01/23/16 [History] Cetirizine HCl [Zyrtec] 10 mg PO DAILY 01/23/16 [History] Docusate Sodium 200 mg PO BID 01/23/16 [History] Gabapentin [Neurontin] 400 mg PO BID 01/23/16 [History] atorvaSTATin [Lipitor] 20 mg PO BEDTIME 01/23/16 [History] metFORMIN [Glucophage] 500 mg PO DAILY 07/09/16 [History] Gabapentin [Neurontin] 800 mg PO BEDTIME 02/08/17 [History] Albuterol [Ventolin HFA] 2 inhalation IH Q4HR PRN 02/19/18 [History] Melatonin 6 mg PO BEDTIME 02/19/18 [History] Enoxaparin [Lovenox] 141 mg SQ BID 12/01/18 [History] Warfarin [Coumadin] 7.5 mg PO DAILY 12/01/18 [History] levETIRAcetam [Keppra] 500 mg PO DAILY 12/06/18 [History] Tamsulosin HCl [Flomax] 0.4 mg PO DAILY 12/13/18 [History] Triamcinolone Acetonide [Triamcinolone Acetonide 0.1% Crm] 1 appful TOP BID [History] Past Medical History HEENT History: Reports: Cataract, Impaired Vision Other HEENT History: wears glasses Cardiovascular History: Reports: Blood Clots/VTE/DVT, High Cholesterol, Hypertension, SOB on Exertion, Syncope Respiratory History: Reports: Asthma, SOB Gastrointestinal History: Reports: Bowel Obstruction, Chronic Constipation, Colon Polyp, Gastritis, GERD, GI Bleed Genitourinary History: Reports: Diabetic Nephropathy Musculoskeletal History: Reports: Arthritis, Fracture, Fibromyalgia Other Musculoskeletal History: toe right carpel tunnel syndrome Neurological History: Reports: Concussion, Migraines, Neuropathy, Diabetic, Neuropathy, Peripheral, Seizure, Other (See Below) Other Neuro History: blood clot in brain r side small seizures recently Psychiatric History: Reports: Anxiety, Depression, Psych Hospitalization(s), PTSD, Suicide Attempt, Suicidal Ideation Other Psychiatric History: borderline clinging disorder Endocrine/Metabolic History: Reports: Diabetes, Type II, Hyperparathyroidism, Obesity/BMI 30+ Oncologic (Cancer) History: Reports: Basal Cell Carcinoma Dermatologic History: Reports: Psoriasis, Urticaria - Infectious Disease History Infectious Disease History: Reports: Chicken Pox - Past Surgical History HEENT Surgical History: Reports: Tonsillectomy Cardiovascular Surgical History: Reports: None Respiratory Surgical History: Reports: None GI Surgical History: Reports: Appendectomy, Cholecystectomy, Colon, Colonoscopy , EGD, Hernia, Abdominal, Hernia Repair/Other, Lysis of Adhesions, Small Bowel Male Surgical History: Reports: None Endocrine Surgical History: Reports: Parathyroidectomy Neurological Surgical History: Reports: None Musculoskeletal Surgical History: Reports: Arthroscopic Knee Oncologic Surgical History: Reports: Other (See Below) Other Oncologic Surgeries/Procedures: BIOPSY Dermatological Surgical History: Reports: Skin Biopsy Social & Family History - Family History Family Medical History: Noncontributory HEENT: Reports: Sinusitis Cardiac: Reports: Aneurysm, Blood Clots/VTE/DVT, [place], SOB on Exertion Respiratory: Reports: COPD OBGYN: Reports: Other (See Below) Other OBGYN Family History: hysterectomies Musculoskeletal: Reports: Arthritis, Back pain, Chronic Neurological: Reports: CVA, MS Psychiatric: Reports: Psych Hospitalization(s), Psychosis Endocrine/Metabolic: Reports: Diabetes, Type I, Hypothyroidism Dermatologic: Reports: Psoriasis Oncologic: Reports: Breast, Other (See Below) Other Oncologic Family History: stomach - Tobacco Use Smoking Status *Q: Unknown Ever Smoked - Caffeine Use Caffeine Use: Reports: Coffee, Soda ED ROS GENERAL - Review of Systems Review Of Systems: See Below Constitutional: Reports: No Symptoms HEENT: Reports: No Symptoms Respiratory: Reports: No Symptoms Cardiovascular: Reports: No Symptoms Endocrine: Reports: No Symptoms GI/Abdominal: Reports: No Symptoms : Reports: No Symptoms Musculoskeletal: Reports: No Symptoms Skin: Reports: No Symptoms Neurological: Reports: No Symptoms Psychiatric: Reports: Anxiety, Suicidal Ideation. Denies: Hallucinations, Homicidal Ideation Hematologic/Lymphatic: Reports: No Symptoms Immunologic: Reports: No Symptoms ED EXAM, BEHAVIORAL HEALTH - Physical Exam Exam: See Below Exam Limited By: No Limitations General Appearance: Alert, No Apparent Distress Ears: Normal External Exam Nose: Normal Inspection Throat/Mouth: Normal Inspection Head: Atraumatic, Normocephalic Respiratory/Chest: No Respiratory Distress, Lungs Clear Cardiovascular: Regular Rate, Rhythm, No Murmur GI/Abdominal: Soft, Non-Tender Extremities: Normal Inspection Neurological: Alert, CN II-XII Intact, Oriented x 3, Abn 2 Pt Discrimination, Other (moving all extremities, speech is fluent) Psychiatric: Alert, Suicidal Thoughts. No: Flight of Ideas, Homicidal Thoughts , Suicidal Plan, Tangential Thoughts, Grandiose Thoughts, Pressured Speech, Paranoid Thoughts Skin Exam: Warm, Dry COURSE, BEHAVIORAL HEALTH COMP - Course Vital Signs: Last Vital Signs Temp 36.1 C 12/14/18 01:09 Pulse 65 12/14/18 01:09 Resp 20 12/14/18 01:09 BP 154/77 H 12/14/18 01:17 Pulse Ox 99 12/14/18 01:09 Orders, Labs, Meds: Active Orders 24 hr Category Date Time Status Suicide Precautions [OM.PC] Routine Oth 12/13/18 18:16 Ordered Laboratory Tests 12/13/18 12/13/18 12/13/18 Range/Units 22:47 22:47 22:47 WBC 7.4 (4.5-11.0) K/uL RBC 5.07 (4.30-5.90) M/uL Hgb 15.8 H (12.0-15.0) g/dL Hct 47.2 (40.0-54.0) % MCV 93 (80-98) fL MCH 31 (27-31) pg MCHC 34 (32-36) % Plt Count 147 L (150-400) K/uL Sodium (140-148) mmol/L Potassium (3.6-5.2) mmol/L Chloride (100-108) mmol/L Carbon Dioxide (21-32) mmol/L Anion Gap (5.0-14.0) mmol/L BUN (7-18) mg/dL Creatinine (0.8-1.3) mg/dL Est Cr Clr Drug Dosing mL/min Estimated GFR (MDRD) (>60) Glucose (74-106) mg/dL Calcium (8.5-10.1) mg/dL TSH, Ultra Sensitive (0.358-3.740) uIU/mL Urine Opiates Screen Negative (NEGATIVE) Ur Oxycodone Screen Negative (NEGATIVE) Urine Methadone Screen Negative (NEGATIVE) Ur Propoxyphene Screen Negative (NEGATIVE) Acetaminophen < 2.0 L (10.0-30.0) ug/mL Ur Barbiturates Screen Negative (NEGATIVE) Ur Tricyclics Screen Negative (NEGATIVE) Ur Phencyclidine Scrn Negative (NEGATIVE) Ur Amphetamine Screen Negative (NEGATIVE) U Methamphetamines Scrn Negative (NEGATIVE) Urine MDMA Screen Negative (NEGATIVE) U Benzodiazepines Scrn Presumptive positive H (NEGATIVE) U Cocaine Metab Screen Negative (NEGATIVE) U Marijuana (THC) Screen Presumptive positive H (NEGATIVE) 12/13/18 Range/Units 22:47 WBC (4.5-11.0) K/uL RBC (4.30-5.90) M/uL Hgb (12.0-15.0) g/dL Hct (40.0-54.0) % MCV (80-98) fL MCH (27-31) pg MCHC (32-36) % Plt Count (150-400) K/uL Sodium 142 (140-148) mmol/L Potassium 4.3 (3.6-5.2) mmol/L Chloride 104 (100-108) mmol/L Carbon Dioxide 31 (21-32) mmol/L Anion Gap 7.4 (5.0-14.0) mmol/L BUN 12 (7-18) mg/dL Creatinine 1.0 (0.8-1.3) mg/dL Est Cr Clr Drug Dosing 97.41 mL/min Estimated GFR (MDRD) > 60 (>60) Glucose 120 H (74-106) mg/dL Calcium 9.4 (8.5-10.1) mg/dL TSH, Ultra Sensitive 2.817 (0.358-3.740) uIU/mL Urine Opiates Screen (NEGATIVE) Ur Oxycodone Screen (NEGATIVE) Urine Methadone Screen (NEGATIVE) Ur Propoxyphene Screen (NEGATIVE) Acetaminophen (10.0-30.0) ug/mL Ur Barbiturates Screen (NEGATIVE) Ur Tricyclics Screen (NEGATIVE) Ur Phencyclidine Scrn (NEGATIVE) Ur Amphetamine Screen (NEGATIVE) U Methamphetamines Scrn (NEGATIVE) Urine MDMA Screen (NEGATIVE) U Benzodiazepines Scrn (NEGATIVE) U Cocaine Metab Screen (NEGATIVE) U Marijuana (THC) Screen (NEGATIVE) Medications Discontinued Medications Generic Name Dose Route Start Last Admin Trade Name Freq PRN Reason Stop Dose Admin Atorvastatin Calcium 20 mg 12/14/18 00:40 12/14/18 01:13 Lipitor PO 12/14/18 00:41 20 mg ONETIME ONE Administration Enoxaparin Sodium 141 mg 12/14/18 00:40 12/14/18 01:16 Lovenox SUBCUT 12/14/18 00:41 141 mg ONETIME ONE Administration Enoxaparin Sodium Confirm 12/14/18 01:03 12/14/18 01:17 Lovenox Administered 12/14/18 01:04 Not Given Dose 120 mg .ROUTE .STK-MED ONE Enoxaparin Sodium Confirm 12/14/18 01:04 12/14/18 01:17 Lovenox Administered 12/14/18 01:05 Not Given Dose 60 mg .ROUTE .STK-MED ONE Gabapentin 800 mg 12/14/18 00:42 12/14/18 01:12 Neurontin PO 12/14/18 00:43 800 mg BEDTIME ONE Administration Levetiracetam 500 mg 12/14/18 00:40 12/14/18 01:13 Keppra PO 12/14/18 00:41 500 mg NOW STA Administration Lorazepam 1 mg 12/13/18 18:16 12/13/18 18:31 Ativan PO 12/13/18 18:17 1 mg ONETIME ONE Administration Re-Assessment/Re-Exam: 58-year-old with history of depression, PTSD, prior suicide attempts presents with suicidal ideation. This was triggered after altercation with his family today. He has lost his local support system. Reports recent changes in his psychiatric meds. He does have access at home to weapons. He feels that he is dangerous to himself and reports that if discharged he come up with a plan to go kill himself without returning to the ED. Given his history of prior suicide attempts, prior hospitalization and mental health comorbidities we are asking the mental health crisis team to evaluate the patient and determine appropriate disposition. He denies any medical concerns and is medically clear for psychiatric eval. Seen by crisis - thought to be danger to self and recommending inpatient placement. Accepted at [facility] - placed on 72 hr hold at time of transport at accept psychiatrist request. Departure - Departure Time of Disposition: 01:15 Disposition: DC/Tfer to Psych Hosp/Unit [facility] Clinical Impression: Suicidal ideation - Discharge Information Referrals: Samuel Bueno MD [Primary Care Provider] - Forms: ED Department Discharge - My Orders Last 24 Hours: My Active Orders 12/13/18 18:16 Suicide Precautions [OM.PC] Routine - Assessment/Plan Last 24 Hours: My Active Orders 12/13/18 18:16 Suicide Precautions [OM.PC] Routine
[2018-12-14] MEDS ORDERED: levETIRAcetam 250 MG Tab PO STA (00:40)
[2018-12-14] MEDS ORDERED: Enoxaparin 150 MG/1 ML Syringe SUBCUT ONE (00:40)
[2018-12-14] MEDS ORDERED: atorvaSTATin 20 MG Tab PO ONE (00:40)
[2018-12-14] MEDS ORDERED: Gabapentin 400 MG Cap PO ONE (00:42)
[2018-12-14] MEDS ORDERED: Enoxaparin 120 MG/0.8 ML Syringe ONE (01:03)
[2018-12-14] MEDS ORDERED: Enoxaparin 60 MG/0.6 ML Syringe ONE (01:04)
[2018-12-14 01:10] VITALS: PULSE 65
[2018-12-14 01:17] VITALS: BP 154/77
== END 2018-12-14 03:13 ==
LOC: JP.ED 17:19
DX: F32.9 Major depressive disorder, single episode, unspecified (principal); F41.9 Anxiety disorder, unspecified; E78.00 Pure hypercholesterolemia, unspecified; I10 Essential (primary) hypertension; E11.21 Type 2 diabetes mellitus with diabetic nephropathy; Z88.0 Allergy status to penicillin; Z91.040 Latex allergy status; Z88.6 Allergy status to analgesic agent; Z88.5 Allergy status to narcotic agent; Z88.8 Allergy status to other drugs, medicaments and biological substances; Z91.018 Allergy to other foods; Z79.899 Other long term (current) drug therapy; Z79.01 Long term (current) use of anticoagulants; Z86.73 Personal history of transient ischemic attack (TIA), and cerebral infarction without residual deficits
CPT/HCPCS: 36415; 80048; 80305; 84443; 85027; 96372; 99285; A9270; G0480; J1650

== ENCOUNTER 2019-05-12 13:49 | Emergency (ER) | payer MEDICARE, MEDICAID ==
--- NOTE | 2019-05-12 17:06 | EDM.PDOC ---
<Robyn Pizarro - Last Filed: 05/12/19 17:08> ED HPI GENERAL MEDICAL PROBLEM - General Chief Complaint: Behavioral/Psych Stated Complaint: MENTAL EVEL Time Seen by Provider: 05/12/19 17:06 Source of Information: Reports: Patient History Limitations: Reports: No Limitations - History of Present Illness INITIAL COMMENTS - FREE TEXT/NARRATIVE: pt arrived with a history of feeling suicidal. He states his daughter told him to go and kill himself. He was at [facility] for a similar episode in November. He was at [facility] until Feb when he was discharged home. 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 He does have small seizures. He had a confrontation today with his daughter Onset: Today, Other ( His daughter and him gopt in a argument. ) Duration: Hour(s): Location: Reports: Other (pt is feeling very suicidal. He did state that if he was released he definitely would kill himself. ) Associated Symptoms: Reports: No Other Symptoms - Related Data Allergies Allergy/AdvReac Type Severity Reaction Status Date / Time nut - unspecified Allergy Severe Anaphylactic Verified 05/12/19 14:56 Shock penicillin Allergy Severe Airway Verified 05/12/19 14:56 Tightness latex Allergy Rash Verified 05/12/19 14:56 amitriptyline AdvReac Vomiting Verified 05/12/19 14:56 ibuprofen AdvReac Bleeding Verified 05/12/19 14:56 oxycodone HCl [From Percocet] AdvReac Nausea Verified 05/12/19 14:56 tomato AdvReac Vomiting Verified 05/12/19 14:56 Home Meds: Home Meds Omeprazole 40 mg PO DAILY 12/27/14 [History] Acetaminophen [Arthritis Pain Relief] 650 mg PO ASDIRECTED 04/08/15 [History] Albuterol [Proventil HFA] 2 puff INH Q4H PRN 01/23/16 [History] Cetirizine HCl [Zyrtec] 10 mg PO DAILY 01/23/16 [History] Docusate Sodium 200 mg PO BID 01/23/16 [History] Gabapentin [Neurontin] 400 mg PO BID 01/23/16 [History] atorvaSTATin [Lipitor] 20 mg PO BEDTIME 01/23/16 [History] metFORMIN [Glucophage] 500 mg PO DAILY 07/09/16 [History] Gabapentin [Neurontin] 800 mg PO BEDTIME 02/08/17 [History] Albuterol [Ventolin HFA] 2 inhalation IH Q4HR PRN 02/19/18 [History] Melatonin 6 mg PO BEDTIME 02/19/18 [History] Tamsulosin HCl [Flomax] 0.4 mg PO DAILY 12/13/18 [History] Triamcinolone Acetonide [Triamcinolone Acetonide 0.1% Crm] 1 appful TOP BID [History] Prazosin [Minpress] 3 mg PO DAILY 02/02/19 [History] Sertraline [Zoloft] 200 mg PO DAILY 02/02/19 [History] Rivaroxaban [Xarelto] 20 mg PO DAILY 04/10/19 [History] levETIRAcetam [Keppra] 500 mg PO DAILY 05/12/19 [History] Past Medical History HEENT History: Reports: Cataract, Impaired Vision Other HEENT History: wears glasses Cardiovascular History: Reports: Blood Clots/VTE/DVT, High Cholesterol, Hypertension, SOB on Exertion, Syncope Respiratory History: Reports: Asthma, SOB Gastrointestinal History: Reports: Bowel Obstruction, Chronic Constipation, Colon Polyp, Gastritis, GERD, GI Bleed Genitourinary History: Reports: Diabetic Nephropathy Musculoskeletal History: Reports: Arthritis, Fracture, Fibromyalgia Other Musculoskeletal History: toe right carpel tunnel syndrome Neurological History: Reports: Concussion, Migraines, Neuropathy, Diabetic, Neuropathy, Peripheral, Seizure, Other (See Below) Other Neuro History: blood clot in brain r side small seizures recently Psychiatric History: Reports: Anxiety, Depression, Psych Hospitalization(s), PTSD, Suicide Attempt, Suicidal Ideation Other Psychiatric History: borderline clinging disorder Endocrine/Metabolic History: Reports: Diabetes, Type II, Hyperparathyroidism, Obesity/BMI 30+ Hematologic History: Reports: Anticoagulation Therapy Oncologic (Cancer) History: Reports: Basal Cell Carcinoma Dermatologic History: Reports: Psoriasis, Urticaria - Infectious Disease History Infectious Disease History: Reports: Chicken Pox - Past Surgical History Head Surgeries/Procedures: Reports: None HEENT Surgical History: Reports: Tonsillectomy Cardiovascular Surgical History: Reports: None Respiratory Surgical History: Reports: None GI Surgical History: Reports: Appendectomy, Cholecystectomy, Colon, Colonoscopy , EGD, Hernia, Abdominal, Hernia Repair/Other, Lysis of Adhesions, Small Bowel Endocrine Surgical History: Reports: Parathyroidectomy Neurological Surgical History: Reports: None Musculoskeletal Surgical History: Reports: Arthroscopic Knee Oncologic Surgical History: Reports: Other (See Below) Other Oncologic Surgeries/Procedures: BIOPSY Dermatological Surgical History: Reports: Skin Biopsy Social & Family History - Family History Family Medical History: Noncontributory HEENT: Reports: Sinusitis Cardiac: Reports: Aneurysm, Blood Clots/VTE/DVT, [place], SOB on Exertion Respiratory: Reports: COPD OBGYN: Reports: Other (See Below) Other OBGYN Family History: hysterectomies Musculoskeletal: Reports: Arthritis, Back pain, Chronic Neurological: Reports: CVA, MS Psychiatric: Reports: Psych Hospitalization(s), Psychosis Endocrine/Metabolic: Reports: Diabetes, Type I, Hypothyroidism Dermatologic: Reports: Psoriasis Oncologic: Reports: Breast, Other (See Below) Other Oncologic Family History: stomach - Tobacco Use Smoking Status *Q: Former Smoker Used Tobacco, but Quit: Yes Month/Year Tobacco Last Used: 2018 Second Hand Smoke Exposure: No - Caffeine Use Caffeine Use: Reports: Coffee Caffeine Use Comment: 3-5 cups of coffee per day - Recreational Drug Use Recreational Drug Use: Yes Drug Use in Last 12 Months: Yes Recreational Drug Type: Reports: Marijuana/Hashish Recreational Drug Use Frequency: Daily ED ROS GENERAL - Review of Systems Review Of Systems: See Below Constitutional: Reports: No Symptoms HEENT: Reports: No Symptoms Respiratory: Reports: No Symptoms Cardiovascular: Reports: No Symptoms Endocrine: Reports: No Symptoms GI/Abdominal: Reports: No Symptoms Musculoskeletal: Reports: No Symptoms Neurological: Reports: Other (pt has a blood clot on his rt brain. he does have small seizures at times. ) - Physical Exam Exam: See Below Text/Narrative:: pt states he is feeling very suicidal. He was at [facility] and then came home in Feb. Exam Limited By: No Limitations General Appearance: Alert, Anxious, Other (pupils are equal and reactive. ) Ears: Normal TMs Nose: Normal Inspection Throat/Mouth: Normal Inspection Head Exam: Atraumatic Neck: Normal Inspection Respiratory/Chest: No Respiratory Distress Cardiovascular: Regular Rate, Rhythm GI/Abdominal: Soft, Non-Tender (Male) Exam: Deferred Rectal (Males) Exam: Deferred Neuro Exam (Abbreviated): Alert, Oriented, Normal Cognition Back Exam: Normal Inspection Extremities: Normal Inspection Psychiatric: Normal Affect Course - Vital Signs Last Recorded V/S: Last Vital Signs Temp 36.5 C 12/17/19 14:53 Pulse 69 05/12/19 14:53 Resp 18 05/12/19 14:53 BP 151/100 H 05/12/19 14:53 Pulse Ox 95 05/12/19 14:53 - Orders/Labs/Meds Orders: Active Orders 24 hr Category Date Time Status Gabapentin [Neurontin] Med 05/12/19 21:00 Active 800 mg PO BEDTIME Melatonin Med 05/12/19 21:00 Active 6 mg PO BEDTIME Rivaroxaban [Xarelto] Med 05/13/19 08:00 Once 20 mg PO ONETIME ONE Sertraline [Zoloft] Med 05/13/19 09:00 Active 200 mg PO DAILY levETIRAcetam [Keppra] Med 05/13/19 08:00 Active 500 mg PO BID metFORMIN [Glucophage] Med 05/13/19 08:00 Once 500 mg PO ONETIME ONE Medication Orders Gabapentin (Neurontin) 800 mg PO BEDTIME ROBYN Last Admin: 05/12/19 21:44 Dose: 800 mg Levetiracetam (Keppra) 500 mg PO BID [facility] Melatonin (Melatonin) 6 mg PO BEDTIME ROBYN Last Admin: 05/12/19 21:44 Dose: 6 mg Metformin HCl (Glucophage) 500 mg PO ONETIME ONE Stop: 05/13/19 08:01 Rivaroxaban (Xarelto) 20 mg PO ONETIME ONE Stop: 05/13/19 08:01 Sertraline HCl (Zoloft) 200 mg PO DAILY [facility] Labs: Laboratory Tests 05/12/19 05/12/19 05/12/19 Range/Units 14:57 14:57 14:57 WBC 6.8 (4.5-11.0) K/uL RBC 5.18 (4.30-5.90) M/uL Hgb 16.7 H (12.0-15.0) g/dL Hct 47.8 (40.0-54.0) % MCV 92 (80-98) fL MCH 32 H (27-31) pg MCHC 35 (32-36) % Plt Count 172 (150-400) K/uL Neut % (Auto) 73 H (36-66) % Lymph % (Auto) 16 L (24-44) % [place] % (Auto) 8 H (2-6) % Eos % (Auto) 3 (2-4) % Baso % (Auto) 1 (0-1) % Sodium 137 L (140-148) mmol/L Potassium 4.2 (3.6-5.2) mmol/L Chloride 101 (100-108) mmol/L Carbon Dioxide 23 (21-32) mmol/L Anion Gap 17.2 H (5.0-14.0) mmol/L BUN 11 (7-18) mg/dL Creatinine 0.9 (0.8-1.3) mg/dL Est Cr Clr Drug Dosing 109.84 mL/min Estimated GFR (MDRD) > 60 (>60) Glucose 137 H (74-106) mg/dL Calcium 9.3 (8.5-10.1) mg/dL Total Bilirubin 0.4 (0.2-1.0) mg/dL AST 20 (15-37) U/L ALT 60 (12-78) U/L Alkaline Phosphatase 99 (46-116) U/L Total Protein 7.8 (6.4-8.2) g/dL Albumin 4.5 (3.4-5.0) g/dL Globulin 3.3 (2.3-3.5) g/dL Albumin/Globulin Ratio 1.4 (1.2-2.2) Urine Color (YELLOW) Urine Appearance (CLEAR) Urine pH (5.0-8.0) Ur Specific [place] (1.008-1.030) Urine Protein (NEGATIVE) mg/dL Urine Glucose (UA) (NEGATIVE) mg/dL Urine Ketones (NEGATIVE) mg/dL Urine Occult Blood (NEGATIVE) Urine Nitrite (NEGATIVE) Urine Bilirubin (NEGATIVE) Urine Urobilinogen (0.2-1.0) EU/dL Ur Leukocyte Esterase (NEGATIVE) Urine RBC (0-5) Urine WBC (0-5) Ur Epithelial Cells Amorphous Sediment Urine Bacteria Urine Mucus Urine Opiates Screen (NEGATIVE) Ur Oxycodone Screen (NEGATIVE) Urine Methadone Screen (NEGATIVE) Ur Propoxyphene Screen (NEGATIVE) Ur Barbiturates Screen (NEGATIVE) Ur Tricyclics Screen (NEGATIVE) Ur Phencyclidine Scrn (NEGATIVE) Ur Amphetamine Screen (NEGATIVE) U Methamphetamines Scrn (NEGATIVE) Urine MDMA Screen (NEGATIVE) U Benzodiazepines Scrn (NEGATIVE) U Cocaine Metab Screen (NEGATIVE) U Marijuana (THC) Screen (NEGATIVE) Ethyl Alcohol < 3 mg/dL 05/12/19 05/12/19 Range/Units 15:16 15:16 WBC (4.5-11.0) K/uL RBC (4.30-5.90) M/uL Hgb (12.0-15.0) g/dL Hct (40.0-54.0) % MCV (80-98) fL MCH (27-31) pg MCHC (32-36) % Plt Count (150-400) K/uL Neut % (Auto) (36-66) % Lymph % (Auto) (24-44) % [place] % (Auto) (2-6) % Eos % (Auto) (2-4) % Baso % (Auto) (0-1) % Sodium (140-148) mmol/L Potassium (3.6-5.2) mmol/L Chloride (100-108) mmol/L Carbon Dioxide (21-32) mmol/L Anion Gap (5.0-14.0) mmol/L BUN (7-18) mg/dL Creatinine (0.8-1.3) mg/dL Est Cr Clr Drug Dosing mL/min Estimated GFR (MDRD) (>60) Glucose (74-106) mg/dL Calcium (8.5-10.1) mg/dL Total Bilirubin (0.2-1.0) mg/dL AST (15-37) U/L ALT (12-78) U/L Alkaline Phosphatase (46-116) U/L Total Protein (6.4-8.2) g/dL Albumin (3.4-5.0) g/dL Globulin (2.3-3.5) g/dL Albumin/Globulin Ratio (1.2-2.2) Urine Color Yellow (YELLOW) Urine Appearance Clear (CLEAR) Urine pH 6.5 (5.0-8.0) Ur Specific [place] 1.015 (1.008-1.030) Urine Protein Negative (NEGATIVE) mg/dL Urine Glucose (UA) 100 H (NEGATIVE) mg/dL Urine Ketones Negative (NEGATIVE) mg/dL Urine Occult Blood Negative (NEGATIVE) Urine Nitrite Negative (NEGATIVE) Urine Bilirubin Negative (NEGATIVE) Urine Urobilinogen 0.2 (0.2-1.0) EU/dL Ur Leukocyte Esterase Negative (NEGATIVE) Urine RBC 0-5 (0-5) Urine WBC 0-5 (0-5) Ur Epithelial Cells Rare Amorphous Sediment Not seen Urine Bacteria Not seen Urine Mucus Not seen Urine Opiates Screen Negative (NEGATIVE) Ur Oxycodone Screen Negative (NEGATIVE) Urine Methadone Screen Negative (NEGATIVE) Ur Propoxyphene Screen Negative (NEGATIVE) Ur Barbiturates Screen Negative (NEGATIVE) Ur Tricyclics Screen Negative (NEGATIVE) Ur Phencyclidine Scrn Negative (NEGATIVE) Ur Amphetamine Screen Negative (NEGATIVE) U Methamphetamines Scrn Negative (NEGATIVE) Urine MDMA Screen Negative (NEGATIVE) U Benzodiazepines Scrn Negative (NEGATIVE) U Cocaine Metab Screen Negative (NEGATIVE) U Marijuana (THC) Screen Presumptive positive H (NEGATIVE) Ethyl Alcohol mg/dL Meds: Medications Generic Name Dose Route Start Last Admin Trade Name Freq PRN Reason Stop Dose Admin Gabapentin 800 mg 05/12/19 21:00 05/12/19 21:44 Neurontin PO 800 mg BEDTIME ROBYN Administration Levetiracetam 500 mg 05/13/19 08:00 Keppra PO BID ROBYN Melatonin 6 mg 05/12/19 21:00 05/12/19 21:44 Melatonin PO 6 mg BEDTIME ROBYN Administration Metformin HCl 500 mg 05/13/19 08:00 Glucophage PO 05/13/19 08:01 ONETIME ONE Rivaroxaban 20 mg 05/13/19 08:00 Xarelto PO 05/13/19 08:01 ONETIME ONE Sertraline HCl 200 mg 05/13/19 09:00 Zoloft PO DAILY ROBYN Discontinued Medications Generic Name Dose Route Start Last Admin Trade Name Freq PRN Reason Stop Dose Admin Acetaminophen 650 mg 05/12/19 20:25 05/12/19 20:29 Tylenol PO 05/12/19 20:26 650 mg NOW ONE Administration Gabapentin 800 mg 05/12/19 21:00 Neurontin PO BEDTIME ROBYN - Re-Assessments/Exams Free Text/Narrative Re-Assessment/Exam: 05/12/19 17:16 pt had normal labs. His drug screen was positive for mar[place]. He has remained calm. He does state that if he returns home he will committ suicide. Departure - Departure Disposition: DC/Tfer to Psych Hosp/[facility] Clinical Impression: Suicidal ideation - Discharge Information Referrals: Samuel Bueno MD [Primary Care Provider] - Forms: ED Department Discharge Sepsis Event Note - Evaluation Sepsis Screening Result: No Definite Risk - Focused Exam Vital Signs: Vital Signs Temp Pulse Resp BP Pulse Ox 05/12/19 14:53 36.5 C 69 18 151/100 H 95 05/12/19 14:29 36.5 C 69 18 151/100 H 95 Date Exam was Performed: 05/12/19 Time Exam was Performed: 17:08 - My Orders Last 24 Hours: My Active Orders 05/12/19 21:00 Gabapentin [Neurontin] 800 mg PO BEDTIME Melatonin 6 mg PO BEDTIME 05/13/19 08:00 Rivaroxaban [Xarelto] 20 mg PO ONETIME ONE levETIRAcetam [Keppra] 500 mg PO BID metFORMIN [Glucophage] 500 mg PO ONETIME ONE 05/13/19 09:00 Sertraline [Zoloft] 200 mg PO DAILY - Assessment/Plan Last 24 Hours: My Active Orders 05/12/19 21:00 Gabapentin [Neurontin] 800 mg PO BEDTIME Melatonin 6 mg PO BEDTIME 05/13/19 08:00 Rivaroxaban [Xarelto] 20 mg PO ONETIME ONE levETIRAcetam [Keppra] 500 mg PO BID metFORMIN [Glucophage] 500 mg PO ONETIME ONE 05/13/19 09:00 Sertraline [Zoloft] 200 mg PO DAILY <Jeb Boyer - Last Filed: 05/12/19 22:13> Course - Orders/Labs/Meds Orders: Active Orders 24 hr Category Date Time Status Gabapentin [Neurontin] Med 05/12/19 21:00 Active 800 mg PO BEDTIME Melatonin Med 05/12/19 21:00 Active 6 mg PO BEDTIME Rivaroxaban [Xarelto] Med 05/13/19 08:00 Once 20 mg PO ONETIME ONE Sertraline [Zoloft] Med 05/13/19 09:00 Active 200 mg PO DAILY levETIRAcetam [Keppra] Med 05/13/19 08:00 Active 500 mg PO BID metFORMIN [Glucophage] Med 05/13/19 08:00 Once 500 mg PO ONETIME ONE Medication Orders Gabapentin (Neurontin) 800 mg PO BEDTIME ROBYN Last Admin: 05/12/19 21:44 Dose: 800 mg Levetiracetam (Keppra) 500 mg PO BID ROBYN Melatonin (Melatonin) 6 mg PO BEDTIME ROBYN Last Admin: 05/12/19 21:44 Dose: 6 mg Metformin HCl (Glucophage) 500 mg PO ONETIME ONE Stop: 05/13/19 08:01 Rivaroxaban (Xarelto) 20 mg PO ONETIME ONE Stop: 05/13/19 08:01 Sertraline HCl (Zoloft) 200 mg PO DAILY ROBYN - Re-Assessments/Exams Free Text/Narrative Re-Assessment/Exam: Received patient in sign out from Dr Pizarro pending crisis team eval They were unable to determine safe dispo plan give SI today and home situation We will begin working on inpatient placement. Will order necessary home meds 05/12/19 20:38 Free Text/Narrative Re-Assessment/Exam: Accepted at [facility]. 05/12/19 22:13 Departure - Departure Time of Disposition: 22:13 Sepsis Event Note - Focused Exam Date Exam was Performed: 05/12/19 Time Exam was Performed: 22:13 - My Orders Last 24 Hours: My Active Orders 05/12/19 21:00 Gabapentin [Neurontin] 800 mg PO BEDTIME Melatonin 6 mg PO BEDTIME 05/13/19 08:00 Rivaroxaban [Xarelto] 20 mg PO ONETIME ONE levETIRAcetam [Keppra] 500 mg PO BID metFORMIN [Glucophage] 500 mg PO ONETIME ONE 05/13/19 09:00 Sertraline [Zoloft] 200 mg PO DAILY - Assessment/Plan Last 24 Hours: My Active Orders 05/12/19 21:00 Gabapentin [Neurontin] 800 mg PO BEDTIME Melatonin 6 mg PO BEDTIME 05/13/19 08:00 Rivaroxaban [Xarelto] 20 mg PO ONETIME ONE levETIRAcetam [Keppra] 500 mg PO BID metFORMIN [Glucophage] 500 mg PO ONETIME ONE 05/13/19 09:00 Sertraline [Zoloft] 200 mg PO DAILY
[2019-05-12] MEDS ORDERED: Acetaminophen Soln 650 MG/20.3 ML UD Cup PO ONE (20:15)
[2019-05-12] MEDS ORDERED: Acetaminophen 325 MG Tab PO ONE (20:25)
[2019-05-12] MEDS ORDERED: Gabapentin 400 MG Cap PO SCH (21:00)
[2019-05-12] MEDS ORDERED: Melatonin 3 MG Tab PO SCH (21:00)
[2019-05-12] MEDS ORDERED: Gabapentin 250 MG/5 ML Solution ML 470 ML Bottle PO SCH (21:00)
[2019-05-13 00:49] VITALS: BP 107/70; PULSE 62
[2019-05-13] MEDS ORDERED: metFORMIN 500 MG Tab PO ONE (08:00)
[2019-05-13] MEDS ORDERED: levETIRAcetam 250 MG Tab PO SCH (08:00)
[2019-05-13] MEDS ORDERED: Rivaroxaban 10 MG Tab PO ONE (08:00)
[2019-05-13] MEDS ORDERED: Sertraline 50 MG Tab PO SCH (09:00)
== END 2019-05-13 08:27 ==
LOC: JP.ED 13:49
DX: R45.851 Suicidal ideations (principal); I10 Essential (primary) hypertension; E78.00 Pure hypercholesterolemia, unspecified; J45.909 Unspecified asthma, uncomplicated; E11.40 Type 2 diabetes mellitus with diabetic neuropathy, unspecified; E11.21 Type 2 diabetes mellitus with diabetic nephropathy; M19.90 Unspecified osteoarthritis, unspecified site; F41.9 Anxiety disorder, unspecified; E21.3 Hyperparathyroidism, unspecified; E66.9 Obesity, unspecified; Z68.38 Body mass index [BMI] 38.0-38.9, adult; Z86.718 Personal history of other venous thrombosis and embolism; Z87.891 Personal history of nicotine dependence; Z79.01 Long term (current) use of anticoagulants; Z79.899 Other long term (current) drug therapy; Z79.84 Long term (current) use of oral hypoglycemic drugs; Z88.0 Allergy status to penicillin; Z88.1 Allergy status to other antibiotic agents; Z88.8 Allergy status to other drugs, medicaments and biological substances; Z91.040 Latex allergy status; Z91.018 Allergy to other foods
CPT/HCPCS: 36415; 80053; 80305; 81001; 85025; 99285; A9270; G0480

== ENCOUNTER 2020-03-21 17:04 | Emergency (ER) | payer MEDICARE, MEDICAID ==
[2020-03-21 18:03] VITALS: BP 142/95; PULSE 80
--- NOTE | 2020-03-21 18:09 | EDM.PDOC ---
ED HPI GENERAL MEDICAL PROBLEM - General Chief Complaint: General Stated Complaint: HIGH BLOOD SUGER Time Seen by Provider: 03/21/20 17:45 Source of Information: Reports: Patient, Family History Limitations: Reports: No Limitations - History of Present Illness INITIAL COMMENTS - FREE TEXT/NARRATIVE: 59-year-old male with cold symptoms for the past week or so, elevated goes for the past month was seen in the clinic last Saturday and had a Covid test checked. He continues to have nausea and high blood sugars but no fever. Fairly significant sore throat. The clinic called him today to tell him that his Covid is negative, he commented that he still has a sore throat and a mild cough so they said he should go to the emergency room because he "might have to be tested again". He is also concerned that his blood glucose levels have been high for the last month or 2, he has a lab draw on for hemoglobin A1c and a visit with Dr. Bueno next Saturday. Onset: Unknown/Unsure (Symptoms have been ongoing for over a week, high blood glucose levels for months) Associated Symptoms: Reports: Cough, Loss of Appetite, Malaise, Other (Persistent nausea, no vomiting). Denies: Fever/Chills Right Headache Pain Score (Numeric/FACES): 7 - Related Data Allergies Allergy/AdvReac Type Severity Reaction Status Date / Time nut - unspecified Allergy Severe Anaphylactic Verified 05/12/19 14:56 Shock penicillin Allergy Severe Airway Verified 05/12/19 14:56 Tightness latex Allergy Rash Verified 05/12/19 14:56 amitriptyline AdvReac Vomiting Verified 05/12/19 14:56 ibuprofen AdvReac Bleeding Verified 05/12/19 14:56 oxycodone HCl [From Percocet] AdvReac Nausea Verified 05/12/19 14:56 tomato AdvReac Vomiting Verified 05/12/19 14:56 Home Meds: Home Meds Omeprazole 40 mg PO DAILY 12/27/14 [History] Acetaminophen [Arthritis Pain Relief] 650 mg PO ASDIRECTED 04/08/15 [History] Albuterol [Proventil HFA] 2 puff INH Q4H PRN 01/23/16 [History] Cetirizine HCl [Zyrtec] 10 mg PO DAILY 01/23/16 [History] Docusate Sodium 200 mg PO BID 01/23/16 [History] atorvaSTATin [Lipitor] 20 mg PO BEDTIME 01/23/16 [History] metFORMIN [Glucophage] 1,000 mg PO BID 07/09/16 [History] Albuterol [Ventolin HFA] 2 inhalation IH Q4HR PRN 02/19/18 [History] Melatonin 6 mg PO BEDTIME 02/19/18 [History] Tamsulosin HCl [Flomax] 0.4 mg PO DAILY 12/13/18 [History] Triamcinolone Acetonide [Triamcinolone Acetonide 0.1% Crm] 1 appful TOP BID 12/13/18 [History] Prazosin [Minpress] 3 mg PO DAILY 02/02/19 [History] Sertraline [Zoloft] 200 mg PO DAILY 02/02/19 [History] Rivaroxaban [Xarelto] 20 mg PO DAILY 04/10/19 [History] levETIRAcetam [Keppra] 500 mg PO DAILY 05/12/19 [History] Past Medical History HEENT History: Reports: Cataract, Impaired Vision Other HEENT History: wears glasses Cardiovascular History: Reports: Blood Clots/VTE/DVT, High Cholesterol, Hypertension, SOB on Exertion, Syncope Respiratory History: Reports: Asthma, SOB Gastrointestinal History: Reports: Bowel Obstruction, Chronic Constipation, Colon Polyp, Gastritis, GERD, GI Bleed Genitourinary History: Reports: Diabetic Nephropathy Musculoskeletal History: Reports: Arthritis, Fracture, Fibromyalgia Other Musculoskeletal History: toe right carpel tunnel syndrome Neurological History: Reports: Concussion, Migraines, Neuropathy, Diabetic, Neuropathy, Peripheral, Seizure, Other (See Below) Other Neuro History: blood clot in brain r side small seizures recently Psychiatric History: Reports: Anxiety, Depression, Psych Hospitalization(s), PTSD, Suicide Attempt, Suicidal Ideation Other Psychiatric History: borderline clinging disorder Endocrine/Metabolic History: Reports: Diabetes, Type II, Hyperparathyroidism, Obesity/BMI 30+ Hematologic History: Reports: Anticoagulation Therapy Oncologic (Cancer) History: Reports: Basal Cell Carcinoma Dermatologic History: Reports: Psoriasis, Urticaria - Infectious Disease History Infectious Disease History: Reports: Chicken Pox, Measles, Mumps - Past Surgical History Head Surgeries/Procedures: Reports: None HEENT Surgical History: Reports: Tonsillectomy Cardiovascular Surgical History: Reports: None Respiratory Surgical History: Reports: None GI Surgical History: Reports: Appendectomy, Cholecystectomy, Colon, Colonoscopy, EGD, Hernia, Abdominal, Hernia Repair/Other, Lysis of Adhesions, Small Bowel Endocrine Surgical History: Reports: Parathyroidectomy Neurological Surgical History: Reports: None Musculoskeletal Surgical History: Reports: Arthroscopic Knee Oncologic Surgical History: Reports: Other (See Below) Other Oncologic Surgeries/Procedures: BIOPSY Dermatological Surgical History: Reports: Skin Biopsy Social & Family History - Family History Family Medical History: Noncontributory HEENT: Reports: Sinusitis Cardiac: Reports: Aneurysm, Blood Clots/VTE/DVT, [place], SOB on Exertion Respiratory: Reports: COPD OBGYN: Reports: Other (See Below) Other OBGYN Family History: hysterectomies Musculoskeletal: Reports: Arthritis, Back pain, Chronic Neurological: Reports: CVA, MS Psychiatric: Reports: Psych Hospitalization(s), Psychosis Endocrine/Metabolic: Reports: Diabetes, Type I, Hypothyroidism Dermatologic: Reports: Psoriasis Oncologic: Reports: Breast, Other (See Below) Other Oncologic Family History: stomach - Tobacco Use Tobacco Use Status *Q: Never Tobacco User - Caffeine Use Caffeine Use: Reports: Coffee, Soda Caffeine Use Comment: 3-5 cups of coffee per day - Recreational Drug Use Recreational Drug Use: No ED ROS GENERAL - Review of Systems Review Of Systems: See Below (Intermittent mild cough) Constitutional: Reports: Malaise. Denies: Fever, Chills HEENT: Reports: Rhinitis, Throat Pain Respiratory: Reports: Cough. Denies: Shortness of Breath GI/Abdominal: Reports: Nausea. Denies: Abdominal Pain, Vomiting Skin: Reports: Other (Persistent cutaneous pustules or boils on the buttocks, currently being treated with antibiotics. Also widespread eczematous patches being treated with prednisone) Neurological: Reports: Dizziness, Weakness. Denies: Headache Psychiatric: Reports: No Symptoms ED EXAM, GENERAL - Physical Exam Exam: See Below Exam Limited By: No Limitations General Appearance: Alert, No Apparent Distress Throat/Mouth: Other (Mild pharyngeal erythema) Head: Atraumatic Neck: Supple, Non-Tender Respiratory/Chest: No Respiratory Distress, Lungs Clear Extremities: No: Pedal Edema Neurological: Alert, Oriented Psychiatric: Normal Affect, Normal Mood Course - Vital Signs Last Recorded V/S: Last Vital Signs Temp 97.3 F 03/21/20 17:26 Pulse 80 03/21/20 18:02 Resp 18 03/21/20 17:26 BP 142/95 H 03/21/20 18:02 Pulse Ox 97 03/21/20 17:26 - Re-Assessments/Exams Free Text/Narrative Re-Assessment/Exam: 03/21/20 18:27 A rapid strep was obtained and is negative. I do not think this patient needs yet another Covid test, he was tested 3 days ago. He will keep his appointment on for his hemoglobin A1c, continue on his medications as prescribed and recheck with Dr. Bueno next week. Departure - Departure Time of Disposition: 18:58 Disposition: Home, Self-Care 01 Clinical Impression: Hyperglycemia Pharyngitis Qualifiers: Pharyngitis/tonsillitis etiology: unspecified etiology Qualified Code(s): J02.9 - Acute pharyngitis, unspecified - Discharge Information Instructions: Pharyngitis, Hyperglycemia Referrals: Samuel Bueno MD [Primary Care Provider] - Forms: ED Department Discharge Care Plan Goals: Continue your current medications, throat lozenges may be helpful with sore throat and increase activity as tolerated. Have labs drawn on and recheck with Dr. Bueno on Saturday as planned, or return sooner if worsening such as difficulty breathing or persistent fever. Sepsis Event Note (ED) - Evaluation Sepsis Screening Result: No Definite Risk
== END 2020-03-21 18:58 | disposition home or self-care (01) ==
LOC: JP.ED 17:04
DX: J02.9 Acute pharyngitis, unspecified (principal); E11.65 Type 2 diabetes mellitus with hyperglycemia; E66.9 Obesity, unspecified; F41.9 Anxiety disorder, unspecified; F32.9 Major depressive disorder, single episode, unspecified; F43.10 Post-traumatic stress disorder, unspecified; E78.00 Pure hypercholesterolemia, unspecified; I10 Essential (primary) hypertension; J45.909 Unspecified asthma, uncomplicated; E11.21 Type 2 diabetes mellitus with diabetic nephropathy; E11.42 Type 2 diabetes mellitus with diabetic polyneuropathy; Z88.0 Allergy status to penicillin; Z91.018 Allergy to other foods; Z91.040 Latex allergy status; Z88.1 Allergy status to other antibiotic agents; Z88.6 Allergy status to analgesic agent; Z88.5 Allergy status to narcotic agent; Z90.49 Acquired absence of other specified parts of digestive tract; Z79.01 Long term (current) use of anticoagulants; Z79.84 Long term (current) use of oral hypoglycemic drugs; Z79.899 Other long term (current) drug therapy; Z68.38 Body mass index [BMI] 38.0-38.9, adult
CPT/HCPCS: 87081; 87880-QW; 99282; 99283

== ENCOUNTER 2020-09-30 16:47 | Emergency (ER) | payer MEDICARE, MEDICAID ==
[2020-09-30 17:04] VITALS: BP 145/89; PULSE 89
--- NOTE | 2020-09-30 17:41 | EDM.PDOC ---
ED HPI GENERAL MEDICAL PROBLEM - General Chief Complaint: Upper Extremity Injury/Pain Stated Complaint: POSSIBLE BROKEN THUMB Time Seen by Provider: 09/30/20 17:05 Source of Information: Reports: Patient History Limitations: Reports: No Limitations - History of Present Illness INITIAL COMMENTS - FREE TEXT/NARRATIVE: 60-year-old male was working on a large tire when it dropped on his left thumb. He has swelling and pain around the thumb, especially over the metacarpal and MP joint. Is very painful to move, there is some swelling but no deformity or bruising. This happened about an hour ago. Onset: Sudden Duration: Hour(s): (1 hour ago) Location: Reports: Upper Extremity, Left Quality: Reports: Sharp, Stabbing Worsens with: Reports: Other (Palpation is very painful), Movement Associated Symptoms: Reports: No Other Symptoms Left Finger-Thumb Pain Score (Numeric/FACES): 6 - Related Data Allergies Allergy/AdvReac Type Severity Reaction Status Date / Time nut - unspecified Allergy Severe Anaphylactic Verified 09/30/20 16:55 Shock penicillin Allergy Severe Airway Verified 09/30/20 16:55 Tightness latex Allergy Rash Verified 09/30/20 16:55 amitriptyline AdvReac Vomiting Verified 09/30/20 16:55 ibuprofen AdvReac Bleeding Verified 09/30/20 16:55 oxycodone HCl [From Percocet] AdvReac Nausea Verified 09/30/20 16:55 tomato AdvReac Vomiting Verified 09/30/20 16:55 Home Meds: Home Meds Omeprazole 40 mg PO DAILY 12/27/14 [History] Acetaminophen [Arthritis Pain Relief] 650 mg PO ASDIRECTED 04/08/15 [History] Albuterol [Proventil HFA] 2 puff INH Q4H PRN 01/23/16 [History] Cetirizine HCl [Zyrtec] 10 mg PO DAILY 01/23/16 [History] Docusate Sodium 200 mg PO BID 01/23/16 [History] atorvaSTATin [Lipitor] 20 mg PO BEDTIME 01/23/16 [History] metFORMIN [Glucophage] 1,000 mg PO BID 07/09/16 [History] Albuterol [Ventolin HFA] 2 inhalation IH Q4HR PRN 02/19/18 [History] Melatonin 6 mg PO BEDTIME 02/19/18 [History] Tamsulosin HCl [Flomax] 0.4 mg PO DAILY 12/13/18 [History] Triamcinolone Acetonide [Triamcinolone Acetonide 0.1% Crm] 1 appful TOP BID 12/13/18 [History] Prazosin [Minpress] 3 mg PO DAILY 02/02/19 [History] Sertraline [Zoloft] 200 mg PO DAILY 02/02/19 [History] Rivaroxaban [Xarelto] 20 mg PO DAILY 04/10/19 [History] levETIRAcetam [Keppra] 500 mg PO DAILY 05/12/19 [History] Past Medical History HEENT History: Reports: Cataract, Impaired Vision Other HEENT History: wears glasses Cardiovascular History: Reports: Blood Clots/VTE/DVT, High Cholesterol, Hypertension, SOB on Exertion, Syncope Respiratory History: Reports: Asthma, SOB Gastrointestinal History: Reports: Bowel Obstruction, Chronic Constipation, Colon Polyp, Gastritis, GERD, GI Bleed Genitourinary History: Reports: Diabetic Nephropathy Musculoskeletal History: Reports: Arthritis, Fracture, Fibromyalgia Other Musculoskeletal History: toe right carpel tunnel syndrome Neurological History: Reports: Concussion, Migraines, Neuropathy, Diabetic, Neuropathy, Peripheral, Seizure, Other (See Below) Other Neuro History: blood clot in brain r side small seizures recently Psychiatric History: Reports: Anxiety, Depression, Psych Hospitalization(s), PTSD, Suicide Attempt, Suicidal Ideation Other Psychiatric History: borderline clinging disorder Endocrine/Metabolic History: Reports: Diabetes, Type II, Hyperparathyroidism, Obesity/BMI 30+ Hematologic History: Reports: Anticoagulation Therapy Oncologic (Cancer) History: Reports: Basal Cell Carcinoma Dermatologic History: Reports: Psoriasis, Urticaria - Infectious Disease History Infectious Disease History: Reports: Chicken Pox, Measles, Mumps - Past Surgical History Head Surgeries/Procedures: Reports: None HEENT Surgical History: Reports: Tonsillectomy Cardiovascular Surgical History: Reports: None Respiratory Surgical History: Reports: None GI Surgical History: Reports: Appendectomy, Cholecystectomy, Colon, Colonoscopy, EGD, Hernia, Abdominal, Hernia Repair/Other, Lysis of Adhesions, Small Bowel Male Surgical History: Reports: None Endocrine Surgical History: Reports: Parathyroidectomy Neurological Surgical History: Reports: None Musculoskeletal Surgical History: Reports: Arthroscopic Knee Other Musculoskeletal Surgeries/Procedures:: right knee right elbow hole filled Oncologic Surgical History: Reports: Other (See Below) Other Oncologic Surgeries/Procedures: BIOPSY Dermatological Surgical History: Reports: Skin Biopsy Social & Family History - Family History Family Medical History: No Pertinent Family History HEENT: Reports: Sinusitis Cardiac: Reports: Aneurysm, Blood Clots/VTE/DVT, ND, SOB on Exertion Respiratory: Reports: COPD OBGYN: Reports: Other (See Below) Other OBGYN Family History: hysterectomies Musculoskeletal: Reports: Arthritis, Back pain, Chronic Neurological: Reports: CVA, MS Psychiatric: Reports: Psych Hospitalization(s), Psychosis Endocrine/Metabolic: Reports: Diabetes, Type I, Hypothyroidism Dermatologic: Reports: Psoriasis Oncologic: Reports: Breast, Other (See Below) Other Oncologic Family History: stomach - Tobacco Use Tobacco Use Status *Q: Light Tobacco User Years of Tobacco use: 40 Packs/Tins Daily: 0 Used Tobacco, but Quit: No Second Hand Smoke Exposure: No - Caffeine Use Caffeine Use: Reports: Coffee, Soda Caffeine Use Comment: 3-5 cups of coffee per day - Recreational Drug Use Recreational Drug Use: Yes Recreational Drug Type: Reports: Marijuana/Hashish Recreational Drug Use Frequency: Daily Review of Systems - Review of Systems Review Of Systems: See Below Constitutional: Denies: Fever Respiratory: Reports: No Symptoms Cardiovascular: Reports: No Symptoms GI/Abdominal: Reports: No Symptoms Musculoskeletal: Reports: Hand Pain Skin: Denies: Bruising, Erythema Neurological: Denies: Paresthesia Psychiatric: Reports: No Symptoms ED EXAM, GENERAL - Physical Exam Exam: See Below Exam Limited By: No Limitations General Appearance: Alert, No Apparent Distress Respiratory/Chest: No Respiratory Distress Cardiovascular: Regular Rate, Rhythm Extremities: Other (Exam is otherwise limited to his left hand. Patient had significant tenderness over the thumb metacarpal into the MP joint but no deformity. Mild swelling, no bruising) Neurological: Alert, Oriented Skin Exam: Warm, Dry Course - Vital Signs Last Recorded V/S: Last Vital Signs Temp 96.7 F L 09/30/20 17:07 Pulse 89 09/30/20 17:07 Resp 17 09/30/20 17:07 BP 145/89 H 09/30/20 17:07 Pulse Ox 95 09/30/20 17:07 - Orders/Labs/Meds Orders: Active Orders 24 hr Category Date Time Status Fingers Thumb Lt FA [CR] Stat Exams 09/30/20 17:12 Taken - Re-Assessments/Exams Free Text/Narrative Re-Assessment/Exam: 10/01/20 10:56 An x-ray of the left thumb was obtained which was negative. Alex wraps were placed on the hand to immobilize the thumb which he can wear for the next several days. Increase activity as tolerated, increase recheck next week if not improving satisfactorily. Departure - Departure Time of Disposition: 17:40 Disposition: Home, Self-Care 01 Clinical Impression: Contusion of left thumb Qualifiers: Encounter type: initial encounter Damage to nail status: without damage Qualified Code(s): S60.012A - Contusion of left thumb without damage to nail, initial encounter - Discharge Information Instructions: Contusion, [id number] Referrals: Samuel Bueno MD [Primary Care Provider] - Forms: ED Department Discharge Care Plan Goals: Wrap and elevate thumb for the next several days, then increase activity as tolerated. Use stronger pain medications as needed especially if trying to rest. Recheck next week if not improving satisfactorily. Sepsis Event Note (ED) - Evaluation Sepsis Screening Result: No Definite Risk - My Orders Last 24 Hours: My Active Orders 09/30/20 17:12 Fingers Thumb Lt FA [CR] Stat - Assessment/Plan Last 24 Hours: My Active Orders 09/30/20 17:12 Fingers Thumb Lt FA [CR] Stat
--- NOTE | 2020-10-03 09:33 | CR ---
Fingers Thumb Lt FA CLINICAL HISTORY: Injury FINDINGS: There is no fracture or osseous lesion. Articular surfaces are smooth. Impression: Negative
== END 2020-09-30 17:40 | disposition home or self-care (01) ==
LOC: JP.ED 16:47
DX: S60.012A Contusion of left thumb without damage to nail, initial encounter (principal); E78.00 Pure hypercholesterolemia, unspecified; I10 Essential (primary) hypertension; J45.909 Unspecified asthma, uncomplicated; K21.9 Gastro-esophageal reflux disease without esophagitis; E11.42 Type 2 diabetes mellitus with diabetic polyneuropathy; E11.21 Type 2 diabetes mellitus with diabetic nephropathy; E66.9 Obesity, unspecified; R56.9 Unspecified convulsions; Z79.899 Other long term (current) drug therapy; Z91.018 Allergy to other foods; Z88.0 Allergy status to penicillin; Z91.040 Latex allergy status; Z88.6 Allergy status to analgesic agent; Z88.5 Allergy status to narcotic agent; Z79.84 Long term (current) use of oral hypoglycemic drugs; Z79.01 Long term (current) use of anticoagulants; Z86.718 Personal history of other venous thrombosis and embolism; Z72.0 Tobacco use; W20.8XXA Other cause of strike by thrown, projected or falling object, initial encounter
CPT/HCPCS: 73140-26-FA; 73140-FA; 99282; 99283

== ENCOUNTER 2023-04-15 15:54 | Emergency (ER) | payer MEDICARE, MEDICAID ==
[2023-04-15] MEDS ORDERED: Sodium Chloride 0.9% 10 ML Syringe FLUSH PRN (16:23)
[2023-04-15 16:39] LABS: BASOPHILS ABSOLUTE AUTO 0.16 K/uL (0.00-0.10); BASOPHILS PERCENT AUTO 1.4 % (0.1-1.3); EOSINOPHILS ABSOLUTE AUTO 0.21 K/uL (0.00-0.40); EOSINOPHILS PERCENT AUTO 1.8 % (0.0-5.4); HEMATOCRIT 51.5 % (38.4-49.7); IMMATURE GRAN ABSOLUTE AUTO 0.29 K/uL (0.00-0.23); IMMATURE GRAN PERCENT AUTO 2.5 % (0.0-0.7); LYMPHOCYTES PERCENT AUTO 9.5 % (11.4-47.7); MEAN CORPUSCULAR HEMOGLOBIN 32.8 pg (31.6-35.5); MEAN CORPUSCULAR HGB CONC 37.1 g/dL (31.6-35.5); MEAN CORPUSCULAR VOLUME 88.3 fL (81.4-99.0); MONOCYTES ABSOLUTE AUTO 0.44 K/uL (0.20-0.90); MONOCYTES PERCENT AUTO 3.8 % (3.3-12.6); NEUTROPHILS ABSOLUTE AUTO 9.37 K/uL (1.0-7.6); PLATELET COUNT,PLT 303 K/uL (130-375); RED BLOOD CELL COUNT 5.83 M/uL (4.14-5.76); WHITE BLOOD CELL COUNT,WBC 11.6 K/uL (3.2-11.0)
[2023-04-15 16:42] LABS: HEMOGLOBIN 19.1 g/dL (12.9-16.9)
[2023-04-15] MEDS ORDERED: Sodium Chloride 0.9% 1,000 ML IV ONE ×2 (16:46)
[2023-04-15] MEDS ORDERED: Ondansetron 4 MG/2 ML SDV IVPUSH ONE (16:56)
[2023-04-15 17:00] LABS: A/G RATIO 1.1 (1.2-2.2); ALANINE AMINOTRANSFERASE,ALT 43 U/L (12-78); ALBUMIN 4.2 g/dL (3.4-5.0); ALKALINE PHOSPHATASE 123 U/L (46-116); BILIRUBIN TOTAL 0.8 mg/dL (0.2-1.0); BLOOD UREA NITROGEN,BUN 18 mg/dL (7-18); CALCIUM 9.9 mg/dL (8.5-10.1); CARBON DIOXIDE,CO2 23 mmol/L (21-32); CHLORIDE,CL 98 mmol/L (100-108); ESTIMATED GFR 86 mL/min (>60); GLUCOSE RANDOM 377 mg/dL (74-106); POTASSIUM,K 4.9 mmol/L (3.6-5.2); PROTEIN TOTAL,TP 7.9 g/dL (6.4-8.2); SODIUM,NA 134 mmol/L (140-148)
[2023-04-15 17:01] LABS: ANION GAP 17.9 mmol/L (5.0-14.0)
[2023-04-15 17:02] LABS: ASPARTATE AMNIOTRANSFERASE,AST 31 U/L (15-37)
[2023-04-15 18:08] LABS: CORONAVIRUS COVID-19 NAA NEGATIVE (NEGATIVE); INFLUENZA A NAA NEGATIVE (NEGATIVE); INFLUENZA B NAA NEGATIVE (NEGATIVE); RESPIRATORY SYNCYTIAL VIR NAA NEGATIVE (NEGATIVE)
[2023-04-15 18:09] LABS: APPEARANCE,URINE CLEAR (CLEAR); BILIRUBIN,URINE NEGATIVE (NEGATIVE); COLOR,URINE YELLOW (YELLOW); GLUCOSE,URINE 500 mg/dL (NEGATIVE); KETONES,URINE TRACE mg/dL (NEGATIVE); LEUKOCYTE ESTERASE,URINE NEGATIVE (NEGATIVE); NITRITE,URINE NEGATIVE (NEGATIVE); OCCULT BLOOD,URINE TRACE-INTACT (NEGATIVE); PROTEIN,URINE 100 mg/dL (NEGATIVE); UROBILINOGEN,URINE 0.2 EU/dL (0.2-1.0)
[2023-04-15 18:18] LABS: AMORPHOUS SEDIMENT,URINE NOT SEEN; BACTERIA,URINE FEW; EPITHELIAL CELLS,URINE NOT SEEN; MUCUS,URINE NOT SEEN; RBC,URINE 0-5 (0-5); WBC,URINE 0-5 (0-5)
[2023-04-15 18:54] VITALS: BP 152/86; PULSE 68
== END 2023-04-15 19:15 | disposition home or self-care (01) ==
LOC: JP.ED 15:54
DX: E86.0 Dehydration (principal); E11.65 Type 2 diabetes mellitus with hyperglycemia; E66.9 Obesity, unspecified; A08.4 Viral intestinal infection, unspecified; E11.40 Type 2 diabetes mellitus with diabetic neuropathy, unspecified; K21.9 Gastro-esophageal reflux disease without esophagitis; E78.00 Pure hypercholesterolemia, unspecified; I10 Essential (primary) hypertension; Z79.4 Long term (current) use of insulin; Z79.84 Long term (current) use of oral hypoglycemic drugs; Z79.02 Long term (current) use of antithrombotics/antiplatelets; Z79.899 Other long term (current) drug therapy; Z91.018 Allergy to other foods; Z91.040 Latex allergy status; Z88.0 Allergy status to penicillin; Z88.8 Allergy status to other drugs, medicaments and biological substances; Z68.36 Body mass index [BMI] 36.0-36.9, adult
CPT/HCPCS: 0241U; 36415; 71045; 80053; 81001; 82009; 82800; 82947; 83605; 85025; 96361; 96374; 99284; 99285; J2405; J7030

== ENCOUNTER 2023-12-07 10:44 | Emergency (ER) | payer MEDICARE, MEDICAID ==
[2023-12-07] MEDS ORDERED: Sodium Chloride 0.9% 10 ML Syringe FLUSH PRN (10:52)
[2023-12-07 11:16] LABS: BASOPHILS ABSOLUTE AUTO 0.12 K/uL (0.00-0.10); BASOPHILS PERCENT AUTO 0.8 % (0.1-1.3); EOSINOPHILS ABSOLUTE AUTO 0.05 K/uL (0.00-0.40); EOSINOPHILS PERCENT AUTO 0.3 % (0.0-5.4); HEMOGLOBIN 17.8 g/dL (12.9-16.9); IMMATURE GRAN ABSOLUTE AUTO 0.25 K/uL (0.00-0.23); IMMATURE GRAN PERCENT AUTO 1.7 % (0.0-0.7); LYMPHOCYTES ABSOLUTE AUTO 0.92 K/uL (0.8-3.3); LYMPHOCYTES PERCENT AUTO 6.2 % (11.4-47.7); MEAN CORPUSCULAR HEMOGLOBIN 26.4 pg (31.6-35.5); MEAN CORPUSCULAR HGB CONC 35.6 g/dL (31.6-35.5); MEAN CORPUSCULAR VOLUME 74.2 fL (81.4-99.0); MONOCYTES ABSOLUTE AUTO 1.54 K/uL (0.20-0.90); MONOCYTES PERCENT AUTO 10.4 % (3.3-12.6); NEUTROPHILS PERCENT AUTO 80.6 % (40.0-78.1); PLATELET COUNT,PLT 230 K/uL (130-375); RED BLOOD CELL COUNT 6.74 M/uL (4.14-5.76); WHITE BLOOD CELL COUNT,WBC 14.8 K/uL (3.2-11.0)
[2023-12-07] MEDS: Sodium Chloride 0.9% 80 ML IV SCH (11:22)
[2023-12-07] MEDS: Iopamidol 612 MG/ML 100 ML Bottle IV SCH (11:22)
[2023-12-07] MEDS: Sodium Chloride 0.9% 500 ML IV ONE (11:25)
[2023-12-07 11:36] LABS: A/G RATIO 0.7 (1.2-2.2); ALANINE AMINOTRANSFERASE,ALT 50 U/L (12-78); ALBUMIN 3.3 g/dL (3.4-5.0); ALKALINE PHOSPHATASE 115 U/L (46-116); ANION GAP 16.3 mmol/L (5.0-14.0); ASPARTATE AMNIOTRANSFERASE,AST 89 U/L (15-37); BILIRUBIN TOTAL 0.7 mg/dL (0.2-1.0); BLOOD UREA NITROGEN,BUN 25 mg/dL (7-18); CARBON DIOXIDE,CO2 24 mmol/L (21-32); CHLORIDE,CL 101 mmol/L (100-108); CREATININE 1.1 mg/dL (0.8-1.3); ESTIMATED GFR 76 mL/min (>60); GLUCOSE RANDOM 201 mg/dL (74-106); INR 1.2; POTASSIUM,K 4.3 mmol/L (3.6-5.2); PROTEIN TOTAL,TP 7.8 g/dL (6.4-8.2); PROTHROMBIN TIME 12.1 sec (9.2-10.6); PTT,PARTIAL THROMBOPLSTIN TIME 35.5 sec (21.8-27.3); SODIUM,NA 137 mmol/L (140-148)
[2023-12-07 11:37] LABS: TROPONIN I HIGH SENSITIVITY 5487.2 pg/mL (<=60.3)
[2023-12-07] MEDS: Sodium Chloride 0.9% 1,000 ML IV SCH (15:21)
[2023-12-07] MEDS: Levofloxacin/Dextrose 5%-Water 750 MG in Premix Bag 1 BAG IV ONE (15:34)
[2023-12-07 15:41] LABS: LACTIC ACID 0.9 mmol/L (0.4-2.0)
[2023-12-07 16:47] VITALS: BP 143/92; PULSE 91
== END 2023-12-07 16:37 | disposition other institution (70) ==
LOC: JP.ED 10:44
DX: I63.9 Cerebral infarction, unspecified (principal); I10 Essential (primary) hypertension; J45.909 Unspecified asthma, uncomplicated; E66.9 Obesity, unspecified; E78.00 Pure hypercholesterolemia, unspecified; E11.9 Type 2 diabetes mellitus without complications; Z88.0 Allergy status to penicillin; Z91.040 Latex allergy status; Z88.8 Allergy status to other drugs, medicaments and biological substances; Z91.018 Allergy to other foods; Z79.82 Long term (current) use of aspirin; Z79.4 Long term (current) use of insulin; Z79.899 Other long term (current) drug therapy; Z90.49 Acquired absence of other specified parts of digestive tract; Z68.45 Body mass index [BMI] 70 or greater, adult
CPT/HCPCS: 36415; 70450; 70496; 70498; 80053; 82947; 83605; 84484; 85025; 85610; 85730; 87040; 93005; 93010; 96361; 96365; 99285; 99285-25; J1956; J3490; J7030; J7040; Q9967